=== PATIENT | female | born 1940 | race Caucasian/White ===

== ENCOUNTER 2017-11-28 20:07 | Inpatient (IN) | payer OTHER ==
[~2017-11-28] VITALS: Ht 157.5 cm; Wt 91.7 kg
[~2017-11-28 20:07] MED LIST: ARAVA20 M1 PO; ASMANEX220 MC3; CALTRATE 600 +1 EACH PO; COZAAR25 M1 PO; DAILY MULTIPLE1 EACH PO; FLUTICASONE PRO16 GM NASB; FUROSEMIDE40 M1 PO; LORAZEPAM1 M1 PO; PERCOCET 5-3251 EACH PO; POTASSIUM CHLO20 ME2 PO; PREDNISONE5 M1 PO; SENNA8.6 M3 PO; VITAMIN D31000 UNI2 PO; ZOLOFT50 M1 PO
--- NOTE | 2017-11-28 20:33 | ED AMS/SEIZURE/WEAK/DIZZY ---
History of Present Illness General Chief Complaint: Fall Stated Complaint: BIBA FOR FALL, GENERALIZED WEAKNESS Source: family, EMS Exam Limitations: not alert/orientated, confusion, poor historian Vital Signs & Intake/Output Vital Signs & Intake/Output Vital Signs Date Time Temp Pulse Resp B/P B/P Pulse O2 O2 Flow FiO2 Mean Ox Delivery Rate 11/29 0040 99.6 92 20 96/51 98 Room Air 11/28 2231 100.6 96 24 98/56 97 Nasal 2.5L Cannula 11/287 96 Nasal 2.5L Cannula 11/28 2151 100.1 11/28 2147 100.1 96 24 90/50 96 Nasal 2.5L Cannula 11/28 2124 103.0 11/28 2024 103.0 112 24 153/76 95 Nasal 2.5L Cannula ED Intake and Output 11/29 0000 11/28 1200 Intake Total 0 Output Total 0 Balance 0 Intake, Oral 0 Output, Urine 0 Allergies Coded Allergies: infliximab (From REMICADE) (Severe, LUNG PROBLEM, SOB 11/28/17) methotrexate (Severe, LUNG PROBLEM, SOB 11/28/17) hydroxychloroquine (From PLAQUENIL) (Intermediate, RASH 11/15/17) rituximab (From RITUXAN) (Intermediate, SOB 11/28/17) bacitracin (From NEOSPORIN PLUS PAINRELIEF(SANDRA)) (Mild, RASH 11/15/17) neomycin (From NEOSPORIN PLUS PAINRELIEF(SANDRA)) (Mild, RASH 11/15/17) polymyxin B (From NEOSPORIN PLUS PAINRELIEF(SANDRA)) (Mild, RASH 11/15/17) pramoxine (From NEOSPORIN PLUS PAINRELIEF(SANDRA)) (Mild, RASH 11/15/17) Sulfa (Sulfonamide Antibiotics) (UNKNOWN 11/15/17) azathioprine (UNKNOWN 11/15/17) buspirone (From BUSPAR) (UNKNOWN 11/15/17) clarithromycin (From BIAXIN) (UNKNOWN 11/15/17) latex (UNKNOWN 11/15/17) olmesartan (From BENICAR) (UNKNOWN 11/15/17) tramadol (UNKNOWN 11/15/17) Reconcile Medications Calcium Carbonate/Vitamin D3 (Caltrate 600 + D Tablet) 600 MG-800 TABLET 1 TAB PO QPM SUPPLEMENT (Reported) Cholecalciferol (Vitamin D3) 1,000 UNIT TABLET 1 TAB PO DAILY VITAMIN SUPPORT (Reported) Fluticasone Propionate 50 MCG/ACTUATION SPRAY.SUSP ALLERGIES (Reported) Furosemide 40 MG TABLET 1 TAB PO BID WATER RETENTION (Reported) Leflunomide (Arava) 20 MG TABLET 1 TAB PO DAILY UKNOWN (Reported) Lorazepam 1 MG TABLET 1-2 TAB PO QPM SLEEP (Reported) Losartan Potassium (Cozaar) 25 MG TABLET 1 TAB PO DAILY HEART (Reported) Mometasone Furoate (Asmanex) 220 MCG (30 DOSES) AER.POW.BA ALLERGIES (Reported) Multivitamin (Daily Multiple Vitamin) 1 EACH TABLET 1 TAB PO DAILY VITAMIN SUPPORT (Reported) Oxycodone HCl/Acetaminophen (Percocet 5-325 MG Tablet) 5 MG-325 MG TABLET 0.5 TAB PO DAILY PRN PAIN Potassium Chloride 20 MEQ TAB.ER.PRT 1 TAB PO BID SUPPLEMENT (Reported) Prednisone 5 MG TABLET 1 TAB PO DAILY STEROID (Reported) Sennosides (Senna) 8.6 MG TABLET 1 TAB PO DAILY CONSTIPATION (Reported) Sertraline HCl (Zoloft) 50 MG TABLET 1 TAB PO DAILY MENTAL HEALTH (Reported) Triage Note: 76 YEAR OLD FEMALE BIBA FROM HOME WITH HX FALL 2 WEEKS AGO WITH 2 RIGHT RIB FRACTURES. WITNESSED FALL APPROX 1 HOUR AGO WHEN SHE WENT TO SIT ON "WALKER CHAIR" AND IT ROLLED AWAY FROM HER. WAS ABLE TO LOWER HER TO THE FLOOR. NO HEADSTRIKE. NO LOC. GENERALIZED WEAKNESS X PAST 24 HOURS. Triage Nurses Notes Reviewed? yes HPI: Patient is a 76-year-old female who was brought in by ambulance accompanied by family with report of a slip and fall while attempting to use the bathroom today. Majority of H&P is provided by her family members. Reports she had a fall a few weeks ago where she broke 2 ribs. Daughter reports patient is a 5 glass of wine a day drinker. Over the past week she has not been drinking and has been extra "nasty to the family members". Yesterday family noted she had a slight fever that dissipated throughout the day. Today she was complaining of chills throughout the day. She was taking Tylenol, last dose at 330. She was then using the bathroom and daughter reports she slipped and lowered herself to the ground. She did not hit her head. There is no loss of consciousness. Patient has been having diarrhea which started earlier today and she has been also dry heaving frequently. Patient denies any chest pain or abdominal pain. No headache. (Ba Terrazas PA-C) Past History Travel History Traveled to [place] past 21 day No Medical History Any Pertinent Medical History? see below for history Cardiovascular: hypertension, hyperlipidemia Respiratory: RHEUMATOID LUNG Musculoskeletal: rheumatoid arthritis, osteoporosis Surgical History Surgical History: unobtainable Psychosocial History Who do you live with Spouse Services at Home None What is your primary language Bangladeshi Tobacco Use: Quit >30 days ago Family History Hx Contributory? No (Ba Terrazas PA-C) Review of Systems Review of Systems Constitutional: Reports: chills, fever, malaise, weakness. EENTM: Reports: no symptoms. Respiratory: Reports: see HPI, cough. Cardiovascular: Reports: see HPI. GI: Reports: see HPI, diarrhea, nausea. Genitourinary: Reports: no symptoms. Musculoskeletal: Reports: see HPI. Skin: Reports: no symptoms. Neurological/Psychological: Reports: no symptoms. Hematologic/Endocrine: Reports: no symptoms. Immunologic/Allergic: Reports: no symptoms. All Other Systems: Reviewed and Negative (Ba Terrazas PA-C) Physical Exam Physical Exam General Appearance: well developed/nourished, mild distress Head: atraumatic, normal appearance Eyes: Bilateral: normal appearance, PERRL, EOMI. Ears, Nose, Throat: normal pharynx, hearing grossly normal Neck: normal inspection Respiratory: Scattered wheezing and occasional rhonchi throughout Cardiovascular: regular rate/rhythm, No jvd Gastrointestinal: normal bowel sounds, soft, non-tender, no organomegaly Extremities: normal range of motion Neurologic/Psych: AXOX2, disoriented to time. CN II-XII grossly intact. Following commands, Strength 5/5 and symmetric, sensation grossly intact. No pronator drift. Skin: intact, normal color, warm/dry Core Measures ACS in differential dx? Yes CVA/TIA Diagnosis No Sepsis Present: Yes Sepsis Focused Exam Completed? Yes (Ba Terrazas PA-C) Progress Differential Diagnosis: CVA/stroke, dehydration, drug intoxication, encephalitis , electrolyte imbalance, GI bleed, intracranial Hem., intracranial mass/tumor, pneumonia, sepsis, subarachnoid Hem., UTI/pyelo Plan of Care: Orders Procedure Date/time Status Nothing by Mouth 11/29 B Active Saline Lock 11/29 37 Active Misc Message 11/29 37 Active ED Holding Orders 11/29 37 Active Admit to inpatient 11/29 37 Active Vital Signs 11/29 37 Active Code Status 11/29 37 Active Add-on Test (ER Only) 11/28 2210 Active CULTURE,URINE 11/28 2049 Active TROPONIN LEVEL 11/29 2047 Complete LIPASE 11/29 2047 Complete EKG 11/28 2030 Active BLOOD CULTURE 11/28 2016 Active URINALYSIS 11/28 2016 Complete LACTIC ACID 11/28 2016 Complete COMPREHENSIVE METABOLIC PANEL 11/28 2016 Complete CBC WITHOUT DIFFERENTIAL 11/28 2016 Complete Current Medications Sig/Apple Start time Last Medication Dose Stop Time Status Admin Doxycycline Hyclate 100 MG ONCE ONE 11/29 004 UNVr (Vibramycin) 11/29 0150 Dextrose/Water 100 ML (D5W) Laboratory Tests 11/28/17 2317: Lactic Acid Cancelled 11/28/172136: Urine Color YEL, Urine Clarity CLEAR, Urine pH 6.0, Ur Specific [place] 1.010, Urine Protein 30 H, Urine Ketones NEG, Urine Nitrite NEG, Urine Bilirubin NEG, Urine Urobilinogen 0.2, Ur Leukocyte Esterase TRACE H, Ur Microscopic SEDIMENT EXAMINED, Urine RBC RARE, Urine WBC 5-10 H, Ur Epithelial Cells FEW, Urine Bacteria FEW H, Hyaline Casts 3-5 H, Urine Mucus RARE, Urine Hemoglobin TRACE- INTACT, Urine Glucose NEG 11/28/172047: Anion Gap 12, Estimated GFR 54 L, BUN/Creatinine Ratio 24.0, Glucose 137 H, Lactic Acid 1.4, Calcium 9.8, Total Bilirubin 0.6, AST 37 H, ALT 28, Alkaline Phosphatase 127 H, Troponin I 0.03, Total Protein 6.8, Albumin 3.5, Globulin 3.3, Albumin/Globulin Ratio 1.1, Lipase 54, CBC w Diff MAN DIFF ORDERED, RBC 3.78 L, MCV 89.3, MCH 29.5, MCHC 33.0, RDW 14.2, MPV 7.3 L, Gran % 92.2 H, Lymphocytes % 2.2 L, Monocytes % 5.5, Eosinophils % 0.1, Basophils % 0, Absolute Granulocytes 25.0 H, Segmented Neutrophils 94 H, Band Neutrophils 1, Absolute Lymphocytes 0.6 L, Lymphocytes 2 L, Monocytes 3, Absolute Monocytes 1.5 H, Absolute Eosinophils 0, Absolute Basophils 0, Platelet Estimate VERIFIED BY SMEAR, Normocytic RBCs VERIFIED, Normochromic RBCs VERIFIED, Fld Total RBCs Counted 100 11/28/172030: Troponin I Cancelled, Lipase Cancelled Microbiology 11/28 2136 URINE ROUT: Urine Culture - RECD 11/29 2119 BLOOD: Blood Culture - RECD 11/28 2044 BLOOD: Blood Culture - RECD Initial ED EKG: Sinus Tach at 108 bpm, Nonspecific T wave abnormalities. No significant change from previous EKG. Hand-Off Endorsed To: [place] ZAYAS,Wilfred Arriola Endorsed Time: 2329 Pending: CT, labs Comments: Patient presented with a fever of 103, altered mental status and weakness. She has been given 2 L of IV fluids. 2 IVs were started. Blood work was obtained. She does a white count of 26. Lactate is normal. Her CT scans are pending as her chest x-ray did not show a definite infiltrate. Unsure where the fever source is at this time. Patient was signed out to Dr. Barahona and she will be admitted. (Ba Terrazas PA-C) Diagnostic Imaging: Viewed by Me: CT Scan. Discussed w/RAD: CT Scan. Radiology Impression: PATIENT: TRUPTI CRESPO PRESENT AGE: 76 PATIENT ACCOUNT NO: [id number] : 38 LOCATION: [facility] ORDERING PHYSICIAN: Wilfred Barahona MD SERVICE DATE: 11/28/17 EXAM TYPE: CAT - CT ABD & PELVIS W IV CONTRAST; CT CHEST W IV CONTRAST EXAMINATION: CT CHEST WITH CONTRAST CT ABDOMEN AND PELVIS WITH CONTRAST CLINICAL INFORMATION: Sepsis. Fall. COMPARISON: 11/15/2017 TECHNIQUE: Multidetector volumetric imaging was performed through the chest, abdomen and pelvis following the administration of 95 mL of Optiray 320 intravenous contrast. Sagittal and coronal reformatted images were obtained on the technologist's workstation. Axial MIP volume rendering provided. DLP: 1451 mGy-cm. FINDINGS: CHEST: Lungs: The central airways are patent. Redemonstration of chronic lung disease with diffuse subpleural reticulation and areas of groundglass opacity. Compared to the recent prior CT, there is no significant change. No honeycombing. No dense consolidation. No pneumothorax or pleural effusion. Mediastinum: The heart is normal in size. No pericardial effusion. Coronary artery calcifications noted. No mediastinal lymphadenopathy. The thyroid gland appears unremarkable. Chest Wall/Axilla: No lymphadenopathy. No chest wall mass. ABDOMEN/PELVIS: Liver, Gallbladder, Biliary Tree: The liver is normal in size, shape, and attenuation. No focal hepatic lesion or biliary ductal dilatation is present. Multiple gallstones are seen layering within the gallbladder lumen. No gallbladder wall thickening or pericholecystic fluid. Pancreas: Mild fatty atrophy in the region of the pancreatic head. No focal parenchymal abnormality. Spleen: Unremarkable. Adrenal Glands: Unremarkable. Kidneys and Ureters: The kidneys are normal in size, shape, and attenuation. No hydronephrosis, hydroureter or calculi seen. No perinephric stranding. There is an indeterminate left midpole renal lesion which measures 1.9 cm. This measures higher than simple fluid attenuation. There is an additional left lower pole posterior 1.2 cm lesion which also measures higher than simple fluid attenuation. Bladder: Unremarkable. Gastrointestinal Tract: The stomach is compressed. Somewhat abnormal appearance in the region of the gastric antrum could represent a small diverticulum versus decompressed appearance with folds. This is seen on series 2 image 61. The small bowel is normal in caliber. No obstruction. Likely normal appendix. No colonic wall thickening or inflammatory change. No free air or free fluid. Abdominal Wall: No hernia is demonstrated. Lymphovascular Structures: Lymph nodes: Normal. Vascular : Normal caliber aorta with mild atherosclerotic calcifications. Pelvic Viscera: The uterus and adnexa are unremarkable. OSSEOUS STRUCTURES: No suspicious sclerotic or lytic bone lesions are identified. Multilevel degenerative changes are seen throughout the spine. Multilevel vacuum disc phenomenon. Chronic healed sternal fracture. The fracture of the right anterior sixth and seventh ribs is again noted. In addition, not included on the [id number] of the prior chest CT, there are healing fractures involving the anterior right eighth and ninth ribs as well. IMPRESSION: 1. Healing fractures of the right anterior sixth through ninth ribs. 2. Chronic interstitial lung disease, similar to the recent prior study. No acute pulmonary finding. 3. Indeterminant left renal lesions. Further evaluation could initially be performed with renal ultrasound. ([place] ZAYAS,Wilfred Arriola) Departure Departure Disposition: STILL A PATIENT Condition: Stable Referrals: Peter Rodriguez MD (PCP/Family) Departure Forms: Customer Survey General Discharge Information (Mk PIKE,Ba) Departure Clinical Impression Primary Impression: Sepsis Secondary Impressions: Dehydration, Hyponatremia, Pneumonia, Rib fractures Admission Note Spoke With: Javier Ramirez MD Documentation of Exam: Documentation of any treatments & extenuating circumstances including Concerns Regarding Discharge (functional status, medication knowledge or non-compliance, living conditions, etc.) that warrant an admission rather than observation: pt meets criteria for sepsis.... likely pulmonar source, given her chronic lung disease, benign u/a, and ct scans.... ctx and doxy given (pt with sensitivity to macrolides).... pt responded to iv fluids... stable for gen med. PA/SPINNING FRAME CHANGER Co-Sign Statement Statement: ED Attending supervision documentation- [x] I saw and evaluated the patient. I have also reviewed all the pertinent lab results and diagnostic results. I agree with the findings and the plan of care as documented in the PA's/SPINNING FRAME CHANGER's documentation. 11/28/17, 21:01... pt with fever, tachycardia, presently comfortable in ED... await labs, will consider admission given pt meets criteria for sepsis. [] I have reviewed the ED Record and agree with the PA's/SPINNING FRAME CHANGER's documentation. [] Additions or exceptions (if any) to the PAs/SPINNING FRAME CHANGER's note and plan are summarized below: [] ([place] ZAYAS,Wilfred Arriola) Critical Care Note Critical Care Note Critical Care Time: 30-74 min ([place] ZAYAS,Wilfred Arriola)
[2017-11-28 20:59] LABS: ABSOLUTE BASOPHIL COUNT 0 /CUMM (0.0-0.2); ABSOLUTE EOSINOPHIL COUNT 0 /CUMM (0.0-0.7); ABSOLUTE LYMPH COUNT 0.6 /CUMM (1.2-3.4); ABSOLUTE MONOCYTE COUNT 1.5 /CUMM (0.10-0.60); BASOPHIL % 0 % (0.0-2.0); EOSINOPHIL % 0.1 % (0-5); HEMATOCRIT 33.7 % (37-47); MEAN CORPUSCULAR HGB 29.5 PG (27.0-31.0); MEAN CORPUSCULAR VOLUME 89.3 FL (81.0-99.0); MEAN PLATELET VOLUME 7.3 FL (7.4-10.4); PLATELET COUNT 548 /CUMM (130-400); RBC DISTRIBUTION WIDTH 14.2 % (11.5-14.5); RED BLOOD CELL CT 3.78 /CUMM (4.20-5.40); WHITE BLOOD CELL COUNT 27.1 /CUMM (4.8-10.8)
[2017-11-28 21:01] LABS: GRANULOCYTE % 92.2 % (42.2-75.2)
--- NOTE | 2017-11-28 21:08 | RADIOLOGY REPORT ---
EXAMINATION: XR CHEST CLINICAL INFORMATION: Substances COMPARISON: 2012 TECHNIQUE: 2 views of the chest were obtained. FINDINGS: Diffuse interstitial lung markings chronic unchanged prominent interstitial lung disease, difficult to exclude superimposed infiltrates. No dense consolidation however. Both terrance are prominent unchanged. No large effusion or pneumothorax. IMPRESSION: Diffuse increased interstitial lung markings chronic probably underlying interstitial lung disease. Difficult to exclude underlying mild infiltrate. Clinical correlation recommended.
--- NOTE | 2017-11-28 23:22 | CT SCAN REPORT ---
EXAMINATION: CT HEAD WITHOUT CONTRAST CLINICAL INFORMATION: Fall. Altered mental status. COMPARISON: MRI from 06/23/2017 TECHNIQUE: Contiguous axial imaging was performed from the skull base to vertex without intravenous contrast. DLP: 617 mGy-cm. FINDINGS: There is no evidence of acute intracranial hemorrhage or territorial infarction. No abnormal mass effect or midline shift is seen. Jose to white matter differentiation is well preserved. No extra-axial fluid collections are identified. No hydrocephalus. Proportional prominence of the ventricles and sulcal spaces is consistent with mild volume loss. Patchy periventricular and deep white matter hypoattenuation is consistent with mild small vessel ischemic changes. The osseous structures and soft tissues are normal. The mastoid air cells and visualized portions of the paranasal sinuses are well aerated. IMPRESSION: No acute intracranial pathology. Mild volume loss with small vessel ischemic change.
--- NOTE | 2017-11-28 23:36 | CT SCAN REPORT ---
EXAMINATION: CT CHEST WITH CONTRAST CT ABDOMEN AND PELVIS WITH CONTRAST CLINICAL INFORMATION: Sepsis. Fall. COMPARISON: 11/15/2017 TECHNIQUE: Multidetector volumetric imaging was performed through the chest, abdomen and pelvis following the administration of 95 mL of Optiray 320 intravenous contrast. Sagittal and coronal reformatted images were obtained on the technologist's workstation. Axial MIP volume rendering provided. DLP: 1451 mGy-cm. FINDINGS: CHEST: Lungs: The central airways are patent. Redemonstration of chronic lung disease with diffuse subpleural reticulation and areas of groundglass opacity. Compared to the recent prior CT, there is no significant change. No honeycombing. No dense consolidation. No pneumothorax or pleural effusion. Mediastinum: The heart is normal in size. No pericardial effusion. Coronary artery calcifications noted. No mediastinal lymphadenopathy. The thyroid gland appears unremarkable. Chest Wall/Axilla: No lymphadenopathy. No chest wall mass. ABDOMEN/PELVIS: Liver, Gallbladder, Biliary Tree: The liver is normal in size, shape, and attenuation. No focal hepatic lesion or biliary ductal dilatation is present. Multiple gallstones are seen layering within the gallbladder lumen. No gallbladder wall thickening or pericholecystic fluid. Pancreas: Mild fatty atrophy in the region of the pancreatic head. No focal parenchymal abnormality. Spleen: Unremarkable. Adrenal Glands: Unremarkable. Kidneys and Ureters: The kidneys are normal in size, shape, and attenuation. No hydronephrosis, hydroureter or calculi seen. No perinephric stranding. There is an indeterminate left midpole renal lesion which measures 1.9 cm. This measures higher than simple fluid attenuation. There is an additional left lower pole posterior 1.2 cm lesion which also measures higher than simple fluid attenuation. Bladder: Unremarkable. Gastrointestinal Tract: The stomach is compressed. Somewhat abnormal appearance in the region of the gastric antrum could represent a small diverticulum versus decompressed appearance with folds. This is seen on series 2 image 61. The small bowel is normal in caliber. No obstruction. Likely normal appendix. No colonic wall thickening or inflammatory change. No free air or free fluid. Abdominal Wall: No hernia is demonstrated. Lymphovascular Structures: Lymph nodes: Normal. Vascular: Normal caliber aorta with mild atherosclerotic calcifications. Pelvic Viscera: The uterus and adnexa are unremarkable. OSSEOUS STRUCTURES: No suspicious sclerotic or lytic bone lesions are identified. Multilevel degenerative changes are seen throughout the spine. Multilevel vacuum disc phenomenon. Chronic healed sternal fracture. The fracture of the right anterior sixth and seventh ribs is again noted. In addition, not included on the [id number] of the prior chest CT, there are healing fractures involving the anterior right eighth and ninth ribs as well. IMPRESSION: 1. Healing fractures of the right anterior sixth through ninth ribs. 2. Chronic interstitial lung disease, similar to the recent prior study. No acute pulmonary finding. 3. Indeterminant left renal lesions. Further evaluation could initially be performed with renal ultrasound.
[2017-11-29] VITALS (7 sets, daily range): BP systolic 100–132; BP diastolic 60–80
--- NOTE | 2017-11-29 00:56 | History & Physical ---
YanRosi 11/29/17 0051: General Information and HPI MD Statement: I have seen and personally examined TRUPTI CRESPO and documented this H&P. The patient is a 76 year old F who presented with a patient stated chief complaint of [fall/weakness]. Source of Information: patient, old records Exam Limitations: unable to give history History of Present Illness: Ms. 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 Prior ER, patient was in her usual state of healthy u until 3 wks ago that she developed intermittent diarrhea, self-resolving, and attributed to intermittent bowel regiment use. She had a mechanical fall not assoc w/ LOC/head strike, but with multiple bruises on RLE and resulted in nondisplaced R anterior 6ht and 7th rib fracture, presented to the ER on 11.15, and discharged home. She has been feeling weak ever since and was not as active as before. She endorserd decreased appetite, but denied N/V/ab pain/tenesmus. She reported pain in her upper back that was likely 2/2 thoracic radiculopathy. During our clinical interaction, patient's daughter at bedside provided the history that patient was found to have fallen out of walker chair and fell on the floor, witness by patient's , without LOC/head injury, but was then found to have AMS that lasted for a few hours, and fever with rigors when she was brought to ER, however subsequently resolved when we initiated the admission process that patient became AO x 3 but could not really remember what had happened today regarding her fall. Patient also denied any neck rigidity/urinary symptoms/sore throat/recent use of ABX/chemo. -Smoking: denies -Alcohol: 5 glasses of wine/day -Rec Drugs: denies Allergies/Medications Allergies: Coded Allergies: infliximab (From REMICADE) (Severe, LUNG PROBLEM, SOB 11/28/17) methotrexate (Severe, LUNG PROBLEM, SOB 11/28/17) hydroxychloroquine (From PLAQUENIL) (Intermediate, RASH 11/15/17) rituximab (From RITUXAN) (Intermediate, SOB 11/28/17) bacitracin (From NEOSPORIN PLUS PAINRELIEF(SANDRA)) (Mild, RASH 11/15/17) neomycin (From NEOSPORIN PLUS PAINRELIEF(SANDRA)) (Mild, RASH 11/15/17) polymyxin B (From NEOSPORIN PLUS PAINRELIEF(SANDRA)) (Mild, RASH 11/15/17) pramoxine (From NEOSPORIN PLUS PAINRELIEF(SANDRA)) (Mild, RASH 11/15/17) Sulfa (Sulfonamide Antibiotics) (UNKNOWN 11/15/17) azathioprine (UNKNOWN 11/15/17) buspirone (From BUSPAR) (UNKNOWN 11/15/17) clarithromycin (From BIAXIN) (UNKNOWN 11/15/17) latex (UNKNOWN 11/15/17) olmesartan (From BENICAR) (UNKNOWN 11/15/17) tramadol (UNKNOWN 11/15/17) Past History Travel History Traveled to [place] past 21 day No Medical History Cardiovascular: hypertension, hyperlipidemia Respiratory: RHEUMATOID LUNG Musculoskeletal: rheumatoid arthritis, osteoporosis Surgical History Surgical History: unobtainable Past Family/Social History Psychosocial History Services at Home: None ETOH Use: heavy use Illicit Drug Use: denies illicit drug use Functional Ability ADLs Independent: dressing, eating, toileting, bathing. Ambulation: independent IADLs Independent: shopping, housework, finances, food prep, telephone, transportation , medication admin. Review of Systems Review of Systems Constitutional: Reports: see HPI. Exam & Diagnostic Data Last 24 Hrs of Vital Signs/I&O Vital Signs Date Time Temp Pulse Resp B/P B/P Pulse O2 O2 Flow FiO2 Mean Ox Delivery Rate 11/29 0308 98.1 91 20 118/66 95 Nasal 2.0L Cannula 11/29 0300 Nasal 2.0L Cannula 11/29 0230 98.9 88 20 98/70 97 Room Air 11/29 0040 99.6 92 20 96/51 98 Room Air 11/28 2230 100.6 96 24 98/56 97 Nasal 2.5L Cannula 11/28 2216 96 Nasal 2.5L Cannula 11/28 2150 100.1 11/28 2146 100.1 96 24 90/50 96 Nasal 2.5L Cannula 11/28 2124 103.0 11/28 2024 103.0 112 24 153/76 95 Nasal 2.5L Cannula Intake & Output 11/29 0800 11/29 0000 11/28 1600 Intake Total 0 Output Total 0 Balance 0 Intake, Oral 0 Output, Urine 0 Patient 90.718 kg Weight Weight Bed scale Measurement Method Physical Exam General Appearance Alert, Oriented X3, Cooperative, No Acute Distress Skin No Breakdown, RLE multiple bruises from previous fall Skin Temp/Moisture Exam: Warm/Dry Sepsis Skin Exam (color): Normal for Ethnicity HEENT Atraumatic, PERRLA, EOMI Neck Supple, No JVD Lymphatic Axillary nl, Cervical nl Cardiovascular Regular Rate, Normal S1, Normal S2 Lungs Normal Air Movement, bilateral crackles at lung bases Abdomen Normal Bowel Sounds, Soft, No Tenderness, No Hepatospenomegaly Neurological Normal Speech, Strength at 5/5 X4 Ext, Normal Tone, Sensation Intact Extremities No Edema, Normal Pulses, No Tenderness/Swelling Last 24 Hrs of Labs/Boy: Laboratory Tests 11/28/172316: Lactic Acid Cancelled 11/28/172136: Urine Color YEL, Urine Clarity CLEAR, Urine pH 6.0, Ur Specific [place] 1.010, Urine Protein 30 H, Urine Ketones NEG, Urine Nitrite NEG, Urine Bilirubin NEG, Urine Urobilinogen 0.2, Ur Leukocyte Esterase TRACE H, Ur Microscopic SEDIMENT EXAMINED, Urine RBC RARE, Urine WBC 5-10 H, Ur Epithelial Cells FEW, Urine Bacteria FEW H, Hyaline Casts 3-5 H, Urine Mucus RARE, Urine Hemoglobin TRACE- INTACT, Urine Glucose NEG 11/28/172047: Anion Gap 12, Estimated GFR 54 L, BUN/Creatinine Ratio 24.0, Glucose 137 H, Lactic Acid 1.4, Calcium 9.8, Total Bilirubin 0.6, AST 37 H, ALT 28, Alkaline Phosphatase 127 H, Troponin I 0.03, Total Protein 6.8, Albumin 3.5, Globulin 3.3, Albumin/Globulin Ratio 1.1, Lipase 54, CBC w Diff MAN DIFF ORDERED, RBC 3.78 L, MCV 89.3, MCH 29.5, MCHC 33.0, RDW 14.2, MPV 7.3 L, Gran % 92.2 H, Lymphocytes % 2.2 L, Monocytes % 5.5, Eosinophils % 0.1, Basophils % 0, Absolute Granulocytes 25.0 H, Segmented Neutrophils 94 H, Band Neutrophils 1, Absolute Lymphocytes 0.6 L, Lymphocytes 2 L, Monocytes 3, Absolute Monocytes 1.5 H, Absolute Eosinophils 0, Absolute Basophils 0, Platelet Estimate VERIFIED BY SMEAR, Normocytic RBCs VERIFIED, Normochromic RBCs VERIFIED, Fld Total RBCs Counted 100 11/28/172030: Troponin I Cancelled, Lipase Cancelled Microbiology 11/29 0248 STOOL: Clostridium difficile Toxin A & B - ORD 11/28 2136 URINE ROUT: Legionella Antigen - COMP 11/28 2136 URINE ROUT: Streptococcus pneumoniae Antigen (M - COMP 11/28 2136 URINE ROUT: Urine Culture - RECD 11/29 2119 BLOOD: Blood Culture - RECD 11/28 2044 BLOOD: Blood Culture - RECD Assessment/Plan Assessment: On admission, Vitals: Tmax 103, Tachycardia 112 -> 96, R 24, BP 153/76->98/56, 97% on 2.5LNC -CBC: Leukocytosis 27.1, H/H 11.1/33.7, PLT 548 -BMP: Na 132, Cl 93, BUN 24, Cr 1.0, -UA/Microbiology: -EKG: Sinus Tach at 108 bpm, Nonspecific T wave abnormalities. Problem list/Assessment/Hospital Course: #Fever of unknown origin #Leukocytosis w/ elevated granulocyte % #ILD, stable #RA, stable #Hx of renal lesions #Hx of rib fractures, healing #Hx of diastolic CHF #Hyponatremia #slightly elevated AST/AlkPhos This is a 76yo F admitted with fever of unknown origin, however presented with a CBC sign of infection including leukocytosis/granulocytosis/high fever/AMS, however had no findings on serial chest imagings/ab imaging/UA/positive PE findings or recent sick contact. DDx may include PNA, UTI, C.diff, atelectasis. Patient could also be immunosuppressed due to long-term treatment of RA/ Rheumatoid lung. Further evaluation including consultation would be warranted. - Admit to general medicine, vitals per protocol - Supplemental O2 PRN - Stress dose of steroids as patient had been on chronic prednisone - IVF w/ NS, recheck BE daily for hyponatremia - Hold home meds of prednisone, leflunamide. - Check C.Diff toxin, however patient was not on any ABX in the past month. - Check gram stain, LRC, urine antigens, etc. - Panculture - Renal U/S to rule out abscess. - Continue Ceftriaxone + Doxy for now given patient's allergy to macrolides - Repeat EKG/Trop in the AM - Incentive spirometry to enhance lung expansion - Pending Pulmonary consult by Dr. Estrella in the AM - Pending ID consult for further evaluation of fever. - CIWA PRN as patient had been drinking 4-5 glasses of wine daily. - Continued all other home meds DVT prophylaxis Pharm PPX + ALPS Heart Healthy Diet DNR/DNI As Ranked By This Provider Problem List: 1. Hyponatremia 2. Dehydration 3. Osteoporosis 4. Fever of unknown origin Core Measures/Misc (03/20) Acute Coronary Syndrome ACS Diagnosis: No Congestive Heart Failure Congestive Heart Failure Diagnosis No Cerebrovascular Accident CVA/TIA Diagnosis: No VTE (View Protocol) VTE Risk Factors Age>40 No Mechanical VTE Prophylaxis d/t N/A MechProphylax Ordered No VTE Pharm Prophylaxis d/t NA PharmProphylax ordered Sepsis (View protocol) Sepsis Present: No If YES complete Sepsis Event Note If YES complete Sepsis Event Note Lu Tsai 11/29/17 0239: General Information and HPI Allergies/Medications Home Med list Cholecalciferol (Vitamin D3) 1,000 UNIT TABLET 1 TAB PO DAILY VITAMIN SUPPORT (Reported) Fluticasone Propionate 50 MCG/ACTUATION SPRAY.SUSP ALLERGIES (Reported) Furosemide 40 MG TABLET 1 TAB PO BID WATER RETENTION (Reported) Leflunomide (Arava) 20 MG TABLET 1 TAB PO DAILY UKNOWN (Reported) Lorazepam 1 MG TABLET 1-2 TAB PO QPM SLEEP (Reported) Losartan Potassium 50 MG TABLET 1 TAB PO DAILY BP (Reported) Meloxicam (Mobic) 7.5 MG TABLET 1 TAB PO DAILY PAIN (Reported) Metolazone 2.5 MG TABLET 1 TAB PO Q48 DIURETIC (Reported) Mometasone Furoate (Asmanex) 220 MCG (30 DOSES) AER.POW.BA ALLERGIES (Reported) Multivitamin (Daily Multiple Vitamin) 1 EACH TABLET 1 TAB PO DAILY VITAMIN SUPPORT (Reported) Oxycodone HCl/Acetaminophen (Percocet 5-325 MG Tablet) 5 MG-325 MG TABLET 0.5 TAB PO DAILY PRN PAIN Potassium Chloride 20 MEQ TAB.ER.PRT 1 TAB PO BID SUPPLEMENT (Reported) Prednisone 5 MG TABLET 1 TAB PO DAILY STEROID (Reported) Sennosides (Senna) 8.6 MG TABLET 1 TAB PO DAILY CONSTIPATION (Reported) Core Measures/Misc (03/20) Sepsis (View protocol) If YES complete Sepsis Event Note If YES complete Sepsis Event Note Resident Review Statement Resident Statement: examined this patient, discussed with sports management internship, agreed with sports management internship Other Findings: Ms Lee is a76 year old woman w/ a PMHx of hypertension, hyperlipidemia, rheumatoid arthritis, osteoporosis, Severe interstitial lung disease with a history of UIP related to rheumatoid arthritis confirmed by an open lung biopsy in 2002(uses 2L oxygen), Ulcerative colitis who was brought in by the family with a chief concern of fall while getting out of the bathroom on the day of admission. She was known to be in her usual state of health until three weeks ago, when she developed diarrhea which resolved on itself. Approximately two weeks ago 11/15/17, she had a mechanical fall not associated w/ LOC or prodromal symptoms that resulted in nondisplaced right anterior sixth and seventh rib fractures and multiple bruises on the RLE that was evaluated at ER. Reported feeling weak after the fall, and has not been active. She reported decreased apetite, but no nausea, vomiting or abdominal pain. She reported intermittent diarrheal episodes, but did not have any abdominal pain or tenesmus. Reported pain in her upper back that was largely attributed to her thoracic radiculopathy. No chest pain, no worsening dyspnea, or palpitations. On the day of presentation, she was found to have fallen out of walker chair and fell on the floor. Her was present at the time of episode. No loss of consciousness or head injury, but was found to have altered mentation that lasted for a few hours. She was also found to have fever associated w/ rigors when she was brought to the ER. No neck rigidity, no dysurea, no vaginal discharge. No sore throat. No recent use of abx, or new chemo tx drugs. At the time of admission-temperature 103--> 99.6, pulse rate 112, blood pressure 153/76, pulse ox 95% on 2.5 L. General Exam: AAOx3, No acute distress, but appeard to have dyspnea Skin: No rashes, no breakdown, echymotic areas on the RLE secondary to fall, no joint swellings or erythema, no rash;HEENT: PERRLA, EOMI; Neck: Supple, No JVD; No cervical lymphadenopathy;CVS: Reg Rate, Normal S1,S2, No MGR;Resp:dec air entry, ovi rales;Abdomen: Soft, No tenderness, Normal Bowel Sounds;Neuro: Normal Speech , Strength 5/5 b/l x 4 extremities, Sensation intact, CN III-XII NL, Reflexes 2+ ;Extremities: No cyanosis, no pedal edema EKG revealed Sinus tach at 108 bpm, Nonspecific T wave abnormalities. No significant change from previous EKG. Pertinent lab findings- WBC 27.1 (granulocytosis 92.2), hemoglobin 11.1, platelets 548 (likely reactive) Na 132, K 3.9, Cl 92, HCO3 27, AG 12 Renal function-BUN 24, Cr 1.0. Liver chemistries-AST 37, ALT 28, alkaline phosphatase 127. Lactic acid 1.4 Urinalysis revealed urine protein 30, leukocyte esterase trace, nitrite negative , WBC 5-10, hyaline casts 3-5. CT scan head revealed no acute intracranial pathology. Mild volume loss with small vessel ischemic change. CT chest and abdomen revealed 1. Healing fractures of the right anterior sixth through ninth ribs. 2. Chronic interstitial lung disease, similar to the recent prior study. No acute pulmonary finding. 3. Indeterminant left renal lesions. Further evaluation could initially be performed with renal ultrasound. Problem list: 1. Leucocytosis 2. ILD 3. RA 4. h/o renal lesions 5. h/o rib fractures Etilogy in her case is unclear that may have caused an acute change in her clinical state that resulted in a fall, and also had fever. Upon reviewing the labs, she clearly appears to have some infection w/ granulocytosis despite being on prednisone+DMARD, and is severly dehydrated. The source of infection is unclear at this time, and having aseptic inflammation is likely in her case such as Collagen Vascular disease leading to pyrexia, myocardial infarction, myositis. Infectious sources considered at this time are pneumonia, UTI, C diff diarrhea are in the differentials. Plan: - Admit the pt to inpatient service, general medicine preferably at this time given stable BP. - Since the pt is on prednisone, would give her a stress dose of steroids especially solucortef. - IVF w/ NS. Rechek Na in the am given slighly low serum sodium at the time of presentation. - Hold prednisone, Leflunamide at this time - Check C diff toxin , no abx at this time. If the primary team feels strongly to check for C diff PCR and treat pending results, would defer the decision to the ID child development consultant. - Check gram stain, LRC, urine legionella, strep ag. - Check BC x 2, UC. - Check renal ultrasound, to better assess the lesions if they are abscesses. Given h/o being on leflunamide for a long time, there is a possibility of abscess formation, if symptoms dont resolve. - Continue Ceftriaxone + Doxy for now, given allergy to macrolides. - Acetaminophen for fever. - Supplemental O2 prn. Titrate as needed. - Check a follow up Trop in the am. - Incentive spirometry, to avoid any fever from atelectesis. Housekeeping checklist: 1. DVT PPx- Heparin sc 2. GI PPx- Protonix prn 3. Code status- DNR/DNI 4. Diet - heart healthy diet. 5. Med rec-completed, but have the family bring the med list again since the doses of Metolazone/Furosemide is unclear. 6. Consults- Pulm , ID Dinora ZAYAS who evaluated her in the past. James ZAYAS, [facility] 11/29/17 0451: Core Measures/Misc (03/20) Sepsis (View protocol) If YES complete Sepsis Event Note If YES complete Sepsis Event Note Attending MD Review Statement Attending Statement Attending MD Statement: examined this patient, discuss w/resident/PA/TRIM MACHINE OPERATOR, agreed w/resident/PA/TRIM MACHINE OPERATOR, discussed with family, reviewed images, amended to note Attending Assessment/Plan: 76 yo F with h/o chronic hypoxic respiratory failure on 2L O2, severe ILD with usual interstitial pneumonia secondary to rheumatoid arthritis confirmed by open lung biopsy (2002), RA on leflunomide and chronic prednisone, reflux disease, depression, osteoporosis, ulcerative colitis, is brought in for evaluation after a mechanical fall at home. Patient was seen in the ER 2 weeks prior for a fall resulting in right sided rib fractures. She was discharged home on Percocet. Patient continues to c/o severe right leg pain (impact of the fall with e/o thigh hematoma), upper back pain and right rib pain. Today, she was unable to get off the toilet, needed assistance, walked with a walker but was not able to maneuvre it and slid down to the ground. When family helped her, they noticed that her legs were weight. She was also confused and acting differently as per family. She spiked a fever of 103 in the ER. She then elaborates on a myriad of symptoms. She reports being constipated 2 weeks ago, took Senna and dulcolax after which she had bouts of diarrhea. Over past 2 weeks, she has had intermittent diarrhea, most recently one day prior she had 3 nonbloody diarrheal movements. No recent antibiotic use or consumption of uncooked food. She reports poor appetite, no N/V/ abdominal pain. She has baseline chronic dyspnea on exertion and intermittent nonproductive cough that has not changed. C/o chills, subjective fevers. Denies chest pain, palpitations or lightheadedness. Apparently patient drinks about 3-5 glasses of wine everyday for past 10 yrs, but she has not been drinking for the past 2 weeks. No h/o DT's. Vitals: Tmax 103 -->98.9, HR 80-110's, BP 153/76 --> 98/56 --> 118/66, sats 97% on 2L. Exam: At the time of our evaluation, patient was oriented x 3, mild distress, Chest basilar coarse crackles+ R>L, reduced air entry, Heart S1S2 regular. LE ecchymotic areas noted to right leg, no cellulitis or SSTI. Labs: WBC 27.1, H/H 11.1/33.7, Plt 548, band 1, Na 132, BUN 24, creat 1.0, glucose 137, lactic acid 1.4, AST 37, trop neg. UA clear, protein+, trace LE, WBC 5-10. CXR: diffuse increased interstitial lung markings chronic from ILD. Difficult to exclude underlying infiltrate. CT CAP: healing fracture of right 6th to 9th ribs, chronic interstitial lung disease, no new changes. Left midpole renal lesion and lower pole posterior lesion higher than simple fluid attenuation. Head CT: no acute pathology, small vessel ischemic change. EKG: sinus tachycardia, Qtc 392. Assessment and plan: 1. Acute delirium in the setting of fever 2. Fever of unknown origin - possible source being superimposed bacterial infection over underlying ILD. No clear e/o ILD exacerbation. Cdiff colitis needs to be ruled out. CT not suggestive of infectious or ischemic colitis. UA negative for UTI. No obvious SSTI/ cellulitis. CT shows multiple gallstones but no e/o wall thickening or fluid. LFTs are benign except for mild elevation in AST. No signs of meningitis. Lastly given recent rib fractures, atelectasis is likely and this could attribute to fever as well. 3. SIRS leukocytosis, tachycardia, fever 4. Transient hypotension - resolved 5. Recurrent fall, deconditioning 6. History of RA and ILD on chronic prednisone 7. Alcohol use 8. Left renal lesions - Admit to General medicine - Panculture - Incentive spirometry - Urine legionella and strep Ag - Check flu swab - Panculture - Check stool cultures, Cdiff - Stress dose steroids to help with hypotension - Resume PO prednisone in AM - Patient received IV ceftriaxone and doxy (allergy to clarithromycin) for possible pneumonia. We will continue both antibiotics. - Obtain ID consult - Pulm consult (Dr. Flores) - Gentle IV hydration, check AM cortisol - Hold leflunomide - Renal ultrasound in AM - CIWA protocol, no ativan unless withdrawing - PT eval DVT ppx Hep SC. DNR/I. CMR needs to be confirmed in AM.
[2017-11-29] MEDS ORDERED: LOSARTAN POTASS50 M1 PO (02:52)
[2017-11-29] MEDS ORDERED: MOBIC7.5 M1 PO (02:55)
[2017-11-29] MEDS ORDERED: METOLAZONE2.5 M1 PO (03:06)
--- NOTE | 2017-11-29 04:15 | Admission Certification ---
Admission Certification Certification Statement - As attending physician, I certify that at the time of - admission, based on clinical presentation, severity of - symptoms, need for further diagnostic testing and - therapeutic interventions, and risk of adverse outcomes - without in-hospital treatment, in my clinical assessment, - this patient requires an acute hospital stay for a minimum - of two nights or longer. I have also considered psychsocial - factors such as support system, advanced age, financial - issues, cognitive issues, and failed out-patient treatments, - past re-admission history, safety of patient, and lack of - compliance as applicable. Specific rationale supporting this admission is: Fever of unknown origin in this immunocompromised patient with severe ILD and rheumatoid arthritis.
[2017-11-29 08:17] LABS: ABSOLUTE BASOPHIL COUNT 0 /CUMM (0.0-0.2); ABSOLUTE EOSINOPHIL COUNT 0.1 /CUMM (0.0-0.7); ABSOLUTE GRANULOCYTE CT 28.5 /CUMM (1.4-6.5); ABSOLUTE LYMPH COUNT 1.3 /CUMM (1.2-3.4); ABSOLUTE MONOCYTE COUNT 2.6 /CUMM (0.10-0.60); BASOPHIL % 0.1 % (0.0-2.0); EOSINOPHIL % 0.3 % (0-5); GRANULOCYTE % 87.7 % (42.2-75.2); MEAN CORPUSCULAR HGB 30.1 PG (27.0-31.0); MEAN CORPUSCULAR HGB CONC 33.7 G/DL (33.0-37.0); MEAN CORPUSCULAR VOLUME 89.4 FL (81.0-99.0); MEAN PLATELET VOLUME 7.6 FL (7.4-10.4); PLATELET COUNT 466 /CUMM (130-400); RBC DISTRIBUTION WIDTH 14.4 % (11.5-14.5); RED BLOOD CELL CT 3.19 /CUMM (4.20-5.40)
[2017-11-29 08:52] LABS: HEMATOCRIT 28.5 % (37-47)
[2017-11-29 09:04] LABS: WHITE BLOOD CELL COUNT 32.5 /CUMM (4.8-10.8)
--- NOTE | 2017-11-29 09:06 | PN- Housestaff ---
Subjective Follow-up For: #Fever of unknown origin #Leukocytosis w/ elevated granulocyte % #ILD, stable #RA, stable #Hx of renal lesions #Hx of rib fractures, healing #Hx of diastolic CHF #Hyponatremia #elevated AST/AlkPhos Subjective: Patient reports Review of Systems Constitutional: Reports: see HPI. Objective Last 24 Hrs of Vital Signs/I&O Vital Signs Date Time Temp Pulse Resp B/P B/P Pulse O2 O2 Flow FiO2 Mean Ox Delivery Rate 11/29 1548 Nasal 2.0L Cannula 11/29 1420 Nasal 2.0L Cannula 11/29 1420 96 Nasal 2.0L Cannula 11/29 1354 97.7 86 20 100/70 96 Nasal 2.0L Cannula 11/29 1044 98.1 77 20 116/60 100 Nasal 2.0L Cannula 11/29 1000 98.1 77 20 116/60 11/29 0800 98.7 92 20 116/60 11/29 0800 96 Nasal 2.0L Cannula 11/29 0620 98.7 92 20 116/60 96 Nasal Cannula 11/29 0308 98.1 91 20 118/66 95 Nasal 2.0L Cannula 11/29 0300 Nasal 2.0L Cannula 11/29 0230 98.9 88 20 98/70 97 Room Air 11/29 0040 99.6 92 20 96/51 98 Room Air 11/28 2231 100.6 96 24 98/56 97 Nasal 2.5L Cannula 11/28 2217 96 Nasal 2.5L Cannula 11/28 2151 100.1 11/28 2147 100.1 96 24 90/50 96 Nasal 2.5L Cannula 11/28 2125 103.0 11/285 103.0 112 24 153/76 95 Nasal 2.5L Cannula Intake & Output 11/29 1600 11/29 0800 11/29 0000 Intake Total 1400 300 0 Output Total 600 0 Balance 800 300 0 Intake, IV 800 300 Intake, Oral 600 0 Number 3 3 Bowel Movements Output, Urine 600 0 Patient 200 lb Weight Weight Bed scale Measurement Method Physical Exam General Appearance: Alert, Oriented X3, Cooperative, No Acute Distress Cardiovascular: Regular Rate, Normal S1, Normal S2 Lungs: BL fine crackles Abdomen: Normal Bowel Sounds, Soft, No Tenderness Extremities: No Edema Current Medications: Current Medications Sig/Apple Start time Last Medication Dose Route Stop Time Status Admin Acetaminophen 650 MG Q8P PRN 11/29 0315 AC 11/29 PO 1537 Acetaminophen 0 .STK-MED ONE 11/281 DC IV Acetaminophen 650 MG ONCE ONE 11/28 2044 DC 11/28 PO 11/28 Albuterol Sulfate 3 ML BID 11/29 2100 AC 11/29 INH 1417 Ceftriaxone Sodium 1,000 MG 2300 11/29 2300 AC IV Ceftriaxone Sodium 0 .STK-MED ONE 11/28 2245 DC .ROUTE Ceftriaxone Sodium 1,000 MG ONCE ONE 11/28 2230 DC 11/28 IV 11/28 223 2331 Doxycycline Hyclate 100 MG 1100,2300 11/29 1100 AC 11/29 Dextrose/Water 100 ML IV 1143 Doxycycline Hyclate 100 MG ONCE ONE 11/29 0145 DC 11/29 Dextrose/Water 100 ML IV 11/29 0250 0151 Heparin Sodium 5,000 UNIT Q8 11/29 0600 AC 11/29 (Porcine) SC 1349 Hydrocortisone 100 MG ONE ONE 11/29 0215 DC 11/29 Sodium Succinate IV 11/29 0216 0556 Leflunomide 20 MG DAILY 11/29 0930 AC 11/29 PO 1143 Lorazepam 1 MG QPM PRN 11/29 0300 AC PO Non-Formulary 0 SEE ADMIN CRITERIA 11/29 0915 CAN Medication ANY Prednisone 5 MG DAILY 11/29 0914 AC 11/29 PO 1143 Sodium Chloride 1,000 ML ONCE ONE 11/29 0245 DC 11/29 IV 11/29 1244 0403 Sodium Chloride 1,000 ML BOLUS ONE 11/28 2215 DC 11/28 IV 11/28 2314 2309 Sodium Chloride 1,000 ML BOLUS ONE 11/28 2044 DC 11/28 IV 11/28 Last 24 Hrs of Lab/Boy Results Last 24 Hrs of Labs/Mics: Laboratory Tests 11/29/17 0610: Anion Gap 13, Estimated GFR > 60, BUN/Creatinine Ratio 21.1, Total Bilirubin 0.3 , Direct Bilirubin 0.3, AST 20, ALT 29, Alkaline Phosphatase 106, Troponin I 0.04, Total Protein 5.5 L, Albumin 2.7 L, CBC w Diff MAN DIFF ORDERED, RBC 3.19 L, MCV 89.4, MCH 30.1, MCHC 33.7, RDW 14.4, MPV 7.6, Gran % 87.7 H, Lymphocytes % 4.0 L, Monocytes % 7.9, Eosinophils % 0.3, Basophils % 0.1, Absolute Granulocytes 28.5 H, Segmented Neutrophils 74, Band Neutrophils 17 H, Absolute Lymphocytes 1.3, Lymphocytes 4 L, Monocytes 4, Absolute Monocytes 2.6 H, Absolute Eosinophils 0.1, Basophils 1, Absolute Basophils 0, Platelet Estimate VERIFIED BY SMEAR, Polychromasia 1+, Basophilic Stippling 1+ 11/28/172316: Lactic Acid Cancelled 11/28/172136: Urine Color YEL, Urine Clarity CLEAR, Urine pH 6.0, Ur Specific [place] 1.010, Urine Protein 30 H, Urine Ketones NEG, Urine Nitrite NEG, Urine Bilirubin NEG, Urine Urobilinogen 0.2, Ur Leukocyte Esterase TRACE H, Ur Microscopic SEDIMENT EXAMINED, Urine RBC RARE, Urine WBC 5-10 H, Ur Epithelial Cells FEW, Urine Bacteria FEW H, Hyaline Casts 3-5 H, Urine Mucus RARE, Urine Hemoglobin TRACE- INTACT, Urine Glucose NEG 11/28/172047: Anion Gap 12, Estimated GFR 54 L, BUN/Creatinine Ratio 24.0, Glucose 137 H, Lactic Acid 1.4, Calcium 9.8, Total Bilirubin 0.6, AST 37 H, ALT 28, Alkaline Phosphatase 127 H, Troponin I 0.03, Total Protein 6.8, Albumin 3.5, Globulin 3.3, Albumin/Globulin Ratio 1.1, Lipase 54, CBC w Diff MAN DIFF ORDERED, RBC 3.78 L, MCV 89.3, MCH 29.5, MCHC 33.0, RDW 14.2, MPV 7.3 L, Gran % 92.2 H, Lymphocytes % 2.2 L, Monocytes % 5.5, Eosinophils % 0.1, Basophils % 0, Absolute Granulocytes 25.0 H, Segmented Neutrophils 94 H, Band Neutrophils 1, Absolute Lymphocytes 0.6 L, Lymphocytes 2 L, Monocytes 3, Absolute Monocytes 1.5 H, Absolute Eosinophils 0, Absolute Basophils 0, Platelet Estimate VERIFIED BY SMEAR, Normocytic RBCs VERIFIED, Normochromic RBCs VERIFIED, Fld Total RBCs Counted 100 11/28/172030: Troponin I Cancelled, Lipase Cancelled Microbiology 11/29 0440 STOOL: Clostridium difficile Toxin A & B - COMP 11/28 2136 URINE ROUT: Legionella Antigen - COMP 11/28 2136 URINE ROUT: Streptococcus pneumoniae Antigen (M - COMP 11/28 2136 URINE ROUT: Urine Culture - RES GRAM NEGATIVE RODS 11/29 2119 BLOOD: Blood Culture - RES 11/28 2044 BLOOD: Blood Culture - RES Assessment/Plan Assessment: Ms. 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 difficile was negative We will consider ID if sx worsen Avoid NSAIDS due to hx of GI bleed DVT prophylaxis Pharm PPX + ALPS Heart Healthy Diet DNR/DNI Problem List: 1. Fever of unknown origin Pain Ratin Pain Location: Back Pain Goal: Pain 4 or less Pain Plan: Acetaminophen Tomorrow's Labs & Rationales: CBC, BEP
--- NOTE | 2017-11-29 11:14 | PN- Att Addend ---
Attending Addendum Attending Brief Note Patient seen and examined, says that overall she's feeling better. Requiring 2 lits of Oxygen. WBC increased today. She is still having diarrhea. Cdiff is snet and pending. Vital Signs Date Time Temp Pulse Resp B/P B/P Pulse O2 O2 Flow FiO2 Mean Ox Delivery Rate 11/29 1044 98.1 77 20 116/60 100 Nasal 2.0L Cannula 11/29 1000 98.1 77 20 116/60 11/29 0800 98.7 92 20 116/60 11/29 0800 96 Nasal 2.0L Cannula 11/29 0620 98.7 92 20 116/60 96 Nasal Cannula 11/29 0308 98.1 91 20 118/66 95 Nasal 2.0L Cannula 11/29 0300 Nasal 2.0L Cannula 11/29 0230 98.9 88 20 98/70 97 Room Air 11/29 0040 99.6 92 20 96/51 98 Room Air 11/28 2231 100.6 96 24 98/56 97 Nasal 2.5L Cannula 11/28 2217 96 Nasal 2.5L Cannula 11/28 2151 100.1 11/28 2147 100.1 96 24 90/50 96 Nasal 2.5L Cannula 11/28 2125 103.0 11/28 2024 103.0 112 24 153/76 95 Nasal 2.5L Cannula on exam; aox3, nad. cv; s1,s2, rrr resp; clear abd; soft, nt, bs+ ext; no edema Laboratory Tests 11/29 11/28 0610 2317 Chemistry Sodium (137 - 145 mmol/L) 137 Potassium (3.5 - 5.1 mmol/L) 3.7 Chloride (98 - 107 mmol/L) 99 Carbon Dioxide (22 - 30 mmol/L) 25 Anion Gap (5 - 16) 13 BUN (7 - 17 mg/dL) 19 H Creatinine (0.5 - 1.0 mg/dL) 0.9 Estimated GFR (>60 ml/min) > 60 BUN/Creatinine Ratio (7 - 25 %) 21.1 Lactic Acid Cancelled Total Bilirubin (0.2 - 1.3 mg/dL) 0.3 Direct Bilirubin (< 0.4 mg/dL) 0.3 AST (14 - 36 U/L) 20 ALT (9 - 52 U/L) 29 Alkaline Phosphatase (<127 U/L) 106 Troponin I (< 0.11 ng/ml) 0.04 Total Protein (6.3 - 8.2 g/dL) 5.5 L Albumin (3.5 - 5.0 g/dL) 2.7 L Hematology CBC w Diff MAN DIFF ORDERED WBC (4.8 - 10.8 /CUMM) 32.5 *H RBC (4.20 - 5.40 /CUMM) 3.19 L Hgb (12.0 - 16.0 G/DL) 9.6 L Hct (37 - 47 %) 28.5 L MCV (81.0 - 99.0 FL) 89.4 MCH (27.0 - 31.0 PG) 30.1 MCHC (33.0 - 37.0 G/DL) 33.7 RDW (11.5 - 14.5 %) 14.4 Plt Count (130 - 400 /CUMM) 466 H MPV (7.4 - 10.4 FL) 7.6 Gran % (42.2 - 75.2 %) 87.7 H Lymphocytes % (20.5 - 51.1 %) 4.0 L Monocytes % (1.7 - 9.3 %) 7.9 Eosinophils % (0 - 5 %) 0.3 Basophils % (0.0 - 2.0 %) 0.1 Absolute Granulocytes (1.4 - 6.5 /CUMM) 28.5 H Segmented Neutrophils (42.2 - 75.2 %) 74 Band Neutrophils (0.0 - 5.0 %) 17 H Absolute Lymphocytes (1.2 - 3.4 /CUMM) 1.3 Lymphocytes (20.5 - 51.1 %) 4 L Monocytes (1.7 - 9.3 %) 4 Absolute Monocytes (0.10 - 0.60 /CUMM) 2.6 H Absolute Eosinophils (0.0 - 0.7 /CUMM) 0.1 Basophils (0.0 - 2.0 %) 1 Absolute Basophils (0.0 - 0.2 /CUMM) 0 Platelet Estimate (ADEQUATE) VERIFIED BY SMEAR Polychromasia 1+ Basophilic Stippling 1+ 11/28 2137 Urines Urine Color (YEL,AMB,STR) YEL Urine Clarity (CLEAR) CLEAR Urine pH (5.0 - 8.0) 6.0 Ur Specific [place] (1.001 - 1.035) 1.010 Urine Protein (NEG,<30 MG/DL) 30 H Urine Ketones (NEG) NEG Urine Nitrite (NEG) NEG Urine Bilirubin (NEG) NEG Urine Urobilinogen (0.1 - 1.0 EU/dl) 0.2 Ur Leukocyte Esterase (NEG) TRACE H Ur Microscopic SEDIMENT EXAMINED Urine RBC (0 - 5 /HPF) RARE Urine WBC (0 - 2 /HPF) 5-10 H Ur Epithelial Cells (NONE,FEW) FEW Urine Bacteria (NEG/NONE) FEW H Hyaline Casts (0/LPF) 3-5 H Urine Mucus (FEW,NONE) RARE Urine Hemoglobin (NEG) TRACE-INTACT Urine Glucose (N MG/DL) NEG 11/28 Chemistry Sodium (137 - 145 mmol/L) 132 L Potassium (3.5 - 5.1 mmol/L) 3.9 Chloride (98 - 107 mmol/L) 93 L Carbon Dioxide (22 - 30 mmol/L) 27 Anion Gap (5 - 16) 12 BUN (7 - 17 mg/dL) 24 H Creatinine (0.5 - 1.0 mg/dL) 1.0 Estimated GFR (>60 ml/min) 54 L BUN/Creatinine Ratio (7 - 25 %) 24.0 Glucose (65 - 99 mg/dL) 137 H Lactic Acid (0.7 - 2.1 mmol/L) 1.4 Calcium (8.4 - 10.2 mg/dL) 9.8 Total Bilirubin (0.2 - 1.3 mg/dL) 0.6 AST (14 - 36 U/L) 37 H ALT (9 - 52 U/L) 28 Alkaline Phosphatase (<127 U/L) 127 H Troponin I (< 0.11 ng/ml) 0.03 Cancelled Total Protein (6.3 - 8.2 g/dL) 6.8 Albumin (3.5 - 5.0 g/dL) 3.5 Globulin (1.9 - 4.2 gm/dL) 3.3 Albumin/Globulin Ratio (1.1 - 2.2 %) 1.1 Lipase (23 - 300 U/L) 54 Cancelled Hematology CBC w Diff MAN DIFF ORDERED WBC (4.8 - 10.8 /CUMM) 27.1 H RBC (4.20 - 5.40 /CUMM) 3.78 L Hgb (12.0 - 16.0 G/DL) 11.1 L Hct (37 - 47 %) 33.7 L MCV (81.0 - 99.0 FL) 89.3 MCH (27.0 - 31.0 PG) 29.5 MCHC (33.0 - 37.0 G/DL) 33.0 RDW (11.5 - 14.5 %) 14.2 Plt Count (130 - 400 /CUMM) 548 H MPV (7.4 - 10.4 FL) 7.3 L Gran % (42.2 - 75.2 %) 92.2 H Lymphocytes % (20.5 - 51.1 %) 2.2 L Monocytes % (1.7 - 9.3 %) 5.5 Eosinophils % (0 - 5 %) 0.1 Basophils % (0.0 - 2.0 %) 0 Absolute Granulocytes (1.4 - 6.5 /CUMM) 25.0 H Segmented Neutrophils (42.2 - 75.2 %) 94 H Band Neutrophils (0.0 - 5.0 %) 1 Absolute Lymphocytes (1.2 - 3.4 /CUMM) 0.6 L Lymphocytes (20.5 - 51.1 %) 2 L Monocytes (1.7 - 9.3 %) 3 Absolute Monocytes (0.10 - 0.60 /CUMM) 1.5 H Absolute Eosinophils (0.0 - 0.7 /CUMM) 0 Absolute Basophils (0.0 - 0.2 /CUMM) 0 Platelet Estimate (ADEQUATE) VERIFIED BY SMEAR Normocytic RBCs VERIFIED Normochromic RBCs VERIFIED Other Body Source Fld Total RBCs Counted (%) 100 A/P: 76 y/o F with pmh sig for ILD, w/ 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 Patient currently getting treated with ceftriaxone and doxycycline. Noted rising WBC. Will monitor. C. difficile results are pending. Will consider infectious disease consult if no improvement in the WBC count. Patient's urine also grew gram-negative rods. Urinalysis is indeterminate. Patient on ceftriaxone anyways. She otherwise is asymptomatic from any urinary complaints. We will resume her home dose of prednisone as well as Arava. DVT px; Hep sq PT eval.
--- NOTE | 2017-11-29 11:47 | RADIOLOGY REPORT ---
EXAMINATION: XR CHEST CLINICAL INFORMATION: Shortness of breath COMPARISON: Chest CT from 03/07/2015 and 11/28/2017 TECHNIQUE: 2 views of the chest were obtained. FINDINGS: Chronic interstitial lung disease remains similar appearance compared the chest CT of 03/07/2015. It would be difficult to exclude superimposed acute pneumonitis against the background of chronic disease. However, no overt, acute abnormalities are seen. Cardiac silhouette is mildly enlarged. Mild atherosclerotic calcification of the aortic arch. No pneumothorax or pleural effusion. Bones appear diffusely osteopenic. No acute findings in the mildly degenerated thoracic spine. IMPRESSION: 1. Chronic interstitial lung disease has a similar appearance compared to 03/07/2015. 2. Mild cardiomegaly.
--- NOTE | 2017-11-29 21:13 | ULTRASOUND REPORT ---
EXAMINATION: US RETROPERITONEAL COMPLETE (RENAL) CLINICAL INFORMATION: Lesion in the left kidney seen on CT scan abdomen COMPARISON: CT abdomen 11/28/2017 TECHNIQUE: Real-time imaging of the kidneys and bladder. Color Doppler exam used. FINDINGS: RIGHT KIDNEY: 9.1 x 5.8 x 5.4 cm (SAG x AP x TRV). The kidney is normal in size, contour, and echogenicity. Renal cortical thickness is normal. No calculi or focal parenchymal lesions. No hydronephrosis. LEFT KIDNEY: 11.6 x 6.2 x 5.1 cm (SAG x AP x TRV). There are 2 anechoic cysts in the left kidney. These correlate to the lesion seen on the CT study of 11/28/2017. In the midpole there is a 1.4 x 1.4 x 1.4 cm cyst. At the lower pole there is a 1.1 x 1.2 x 1.2 cm cyst. The kidney is normal in size, contour, and echogenicity. Renal cortical thickness is normal. There are no calculi. There is no hydronephrosis. BLADDER: Well-distended and normal. Bilateral ureteral jets are demonstrated. Prevoid bladder volume is 129 mL. Post void was not assessed. IMPRESSION: 2 anechoic cysts in the left kidney. No suspicious renal lesions. No hydronephrosis or calculus.
[2017-11-30 06:20] VITALS: BP 124/78
--- NOTE | 2017-11-30 07:13 | PN- Housestaff ---
Flakito Ortiz 11/30/17 0713: Subjective Follow-up For: #UTI #Bacteremia #Hx of renal lesions #Hx of rib fractures, healing #Hyponatremia - resolved #elevated AST/AlkPhos Subjective: Patient reports backache. Denies hematuria, flank pain, fever, chills, nausea, vomiting or bowel symptoms Review of Systems Constitutional: Reports: see HPI. Objective Last 24 Hrs of Vital Signs/I&O Vital Signs Date Time Temp Pulse Resp B/P B/P Pulse O2 O2 Flow FiO2 Mean Ox Delivery Rate 11/30 0620 99.1 96 20 124/78 96 Nasal Cannula 11/30 0000 Nasal 2.0L Cannula 11/29 2229 98.2 70 20 132/80 97 Nasal Cannula 11/29 2000 98 Nasal 2.0L Cannula 11/29 1548 Nasal 2.0L Cannula 11/29 1420 Nasal 2.0L Cannula 11/29 1420 96 Nasal 2.0L Cannula 11/29 1354 97.7 86 20 100/70 96 Nasal 2.0L Cannula 11/29 1044 98.1 77 20 116/60 100 Nasal 2.0L Cannula 11/29 1000 98.1 77 20 116/60 Intake & Output 11/30 1600 11/30 0800 11/30 0000 Intake Total 460 830 Output Total 500 Balance 460 330 Intake, IV 130 Intake, Oral 460 700 Output, Urine 500 Patient 202 lb Weight Weight Bed scale Measurement Method Physical Exam General Appearance: Alert, Oriented X3, Cooperative, No Acute Distress Cardiovascular: Regular Rate, Normal S1, Normal S2 Lungs: Clear to Auscultation, Normal Air Movement Abdomen: Normal Bowel Sounds, Soft, No Tenderness Extremities: Trace edema Current Medications: Current Medications Sig/Apple Start time Last Medication Dose Route Stop Time Status Admin Acetaminophen 1,000 MG Q8P PRN 11/29 1800 AC 11/29 N/A 1 UNIT IV 11/30 1759 1939 Acetaminophen 650 MG Q8P PRN 11/29 0315 AC 11/29 PO 1537 Albuterol Sulfate 3 ML BID 11/29 2100 AC 11/29 INH 2000 Ceftriaxone Sodium 1,000 MG 11/29 2300 AC 11/29 IV 2227 Doxycycline Hyclate 100 MG 1100,0 11/29 1100 AC 11/29 Dextrose/Water 100 ML IV 222 Heparin Sodium 5,000 UNIT Q8 11/29 0600 AC 11/30 (Porcine) SC 0602 Leflunomide 20 MG DAILY 11/29 0930 AC 11/30 PO 0813 Lorazepam 1 MG ONE ONE 11/29 2200 DC 11/29 PO 11/29 2200 2227 Lorazepam 1 MG QPM PRN 11/29 2153 AC PO Lorazepam 1 MG QPM PRN 11/29 0300 DC 11/29 PO 2149 Non-Formulary 0 SEE ADMIN CRITERIA 11/29 0915 CAN Medication ANY Patient Medication 1 ED ONE ONE 11/29 1830 HI Teaching ED 11/29 1831 Prednisone 5 MG DAILY 11/29 0914 AC 11/30 PO 0813 Sodium Chloride 1,000 ML ONCE ONE 11/29 0245 DC 11/29 IV 11/29 1244 0403 Last 24 Hrs of Lab/Boy Results Last 24 Hrs of Labs/Mics: Laboratory Tests 11/30/17 0748: Sodium Pending, Potassium Pending, Chloride Pending, Carbon Dioxide Pending, Anion Gap Pending, BUN Pending, Creatinine Pending, BUN/Creatinine Ratio Pending , Iron Pending, TIBC Pending, Ferritin Pending, CBC w Diff Pending, WBC Pending, RBC Pending, Hgb Pending, Hct Pending, MCV Pending, MCH Pending, MCHC Pending, RDW Pending, Plt Count Pending, MPV Pending Assessment/Plan Assessment: Ms. 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), HTN, HLD, Rheumatoid Lung, RA, diastolic CHF hx of Ulcerative colitis, osteoporosis presented with a fall 1-2 hrs prior ER and generalized weakness/AMS #UTI #Bacteremia #Hx of renal lesions #Hx of rib fractures, healing #Hyponatremia - resolved #elevated AST/AlkPhos Plan: TRC/nebs PRN Continue Lorazepam Continue Prednisone and Leflunomide Urine cx grew E.Coli susceptible Ceftriaxone, resistant to Doxycycline We will discontinue Doxycycline Blood cultures grew GNR 1/2 sets Renal U/S ruled out abscess but showed bengin cysts Continue resistant to tetracyclines but susceptible to cephalosporins C. difficile was negative We will consider ID if sx worsen Avoid NSAIDS due to hx of GI bleed Pulm consult for SOB while on 2L during ambulation DVT prophylaxis Pharm PPX + ALPS Heart Healthy Diet DNR/DNI Problem List: 1. UTI (urinary tract infection) Pain Ratin Pain Location: NA Pain Goal: Remain pain free Pain Plan: NA Tomorrow's Labs & Rationales: CBC Ben ZAYAS,Carlene 11/30/17 1027: Attending MD Review Statement Attending Statement Attending MD Statement: examined this patient, discuss w/resident/PA/SHANK PAPERER, agreed w/resident/PA/SHANK PAPERER, discussed with family, reviewed EMR data (avail), discussed with nursing, discussed with case mgmt, reviewed images, amended to note Attending Assessment/Plan: Patient seen and examined, feels overall better. Breathing is somewhat improvd. Urine Culture grew Ecoli, blood cx1/2 positive for GNR. Vital Signs Date Time Temp Pulse Resp B/P B/P Pulse O2 O2 Flow FiO2 Mean Ox Delivery Rate 11/30 0800 Nasal 2.0L Cannula 11/30 0620 99.1 96 20 124/78 96 Nasal Cannula 11/30 0000 Nasal 2.0L Cannula 11/29 2229 98.2 70 20 132/80 97 Nasal Cannula 11/29 2000 98 Nasal 2.0L Cannula 11/29 1548 Nasal 2.0L Cannula 11/29 1420 Nasal 2.0L Cannula 11/29 1420 96 Nasal 2.0L Cannula 11/29 1354 97.7 86 20 100/70 96 Nasal 2.0L Cannula 11/29 1044 98.1 77 20 116/60 100 Nasal 2.0L Cannula on exam; aox3, nad. cv; s1,s2, rrr resp; clear abd; soft, nt, bs+ ext; no edema Laboratory Tests 11/30 0748 Chemistry Sodium (137 - 145 mmol/L) 140 Potassium (3.5 - 5.1 mmol/L) 3.7 Chloride (98 - 107 mmol/L) 103 Carbon Dioxide (22 - 30 mmol/L) 25 Anion Gap (5 - 16) 12 BUN (7 - 17 mg/dL) 13 Creatinine (0.5 - 1.0 mg/dL) 0.7 Estimated GFR (>60 ml/min) > 60 BUN/Creatinine Ratio (7 - 25 %) 18.6 Iron (37 - 170 ug/dL) 39 TIBC (265 - 497 ug/dL) 223 L Ferritin (11.1 - 264 ng/mL) 384.0 H Hematology CBC w Diff NO MAN DIFF REQ WBC (4.8 - 10.8 /CUMM) 24.0 H RBC (4.20 - 5.40 /CUMM) 3.39 L Hgb (12.0 - 16.0 G/DL) 10.1 L Hct (37 - 47 %) 30.3 L MCV (81.0 - 99.0 FL) 89.3 MCH (27.0 - 31.0 PG) 29.8 MCHC (33.0 - 37.0 G/DL) 33.4 RDW (11.5 - 14.5 %) 14.3 Plt Count (130 - 400 /CUMM) 515 H MPV (7.4 - 10.4 FL) 7.6 Gran % (42.2 - 75.2 %) 86.7 H Lymphocytes % (20.5 - 51.1 %) 4.7 L Monocytes % (1.7 - 9.3 %) 7.9 Eosinophils % (0 - 5 %) 0.5 Basophils % (0.0 - 2.0 %) 0.2 Absolute Granulocytes (1.4 - 6.5 /CUMM) 20.8 H Absolute Lymphocytes (1.2 - 3.4 /CUMM) 1.1 L Absolute Monocytes (0.10 - 0.60 /CUMM) 1.9 H Absolute Eosinophils (0.0 - 0.7 /CUMM) 0.1 Absolute Basophils (0.0 - 0.2 /CUMM) 0 A/P: 76 y/o F with pmh sig for ILD, 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 Patient also had diarrhea and Cdiff ruled out. Patient currently on Ceftrioxone. Will keep on CTX, DC Doxy. No evidence of Pna on imaging. Stool for C. difficile was negative. Leukocytosis is improving. We'll continue to monitor. Patient also growing gram-negative rods in one out of 2 blood cultures. We'll follow-up on the results. Continue TRC nebs. Patient at baseline oxygen 2 L. Continue this of the management and patient heparin subcutaneous for DVT prophylaxis. Encouraged ambulation. Discussed with patient's daughter at bedside.
[2017-11-30 09:13] LABS: ABSOLUTE BASOPHIL COUNT 0 /CUMM (0.0-0.2); ABSOLUTE EOSINOPHIL COUNT 0.1 /CUMM (0.0-0.7); ABSOLUTE GRANULOCYTE CT 20.8 /CUMM (1.4-6.5); ABSOLUTE LYMPH COUNT 1.1 /CUMM (1.2-3.4); ABSOLUTE MONOCYTE COUNT 1.9 /CUMM (0.10-0.60); BASOPHIL % 0.2 % (0.0-2.0); EOSINOPHIL % 0.5 % (0-5); HEMATOCRIT 30.3 % (37-47); MEAN CORPUSCULAR HGB 29.8 PG (27.0-31.0); MEAN CORPUSCULAR HGB CONC 33.4 G/DL (33.0-37.0); MEAN CORPUSCULAR VOLUME 89.3 FL (81.0-99.0); MEAN PLATELET VOLUME 7.6 FL (7.4-10.4); RBC DISTRIBUTION WIDTH 14.3 % (11.5-14.5); RED BLOOD CELL CT 3.39 /CUMM (4.20-5.40)
[2017-11-30 10:07] LABS: PLATELET COUNT 515 /CUMM (130-400)
[2017-11-30 10:08] LABS: GRANULOCYTE % 86.7 % (42.2-75.2)
[2017-11-30 14:16] VITALS: BP 118/80
[2017-11-30 22:05] VITALS: BP 112/80
[2017-12-01 06:29] VITALS: BP 136/82
--- NOTE | 2017-12-01 07:20 | PN- Housestaff ---
Flakito Ortiz 12/01/17 0720: Subjective Follow-up For: Chronic hypoxic respiratory failure UTI - E.Coli Bacteremia - GNR Hx of renal lesions Hx of rib fractures, healing Hyponatremia - resolved elevated AST/AlkPhos Subjective: Patient reports labored breathing. She also reports R side rib pain controlled with IV Acetaminophen. She denies diarrhea, CP, lightheadedness Review of Systems Constitutional: Reports: see HPI. Objective Last 24 Hrs of Vital Signs/I&O Vital Signs Date Time Temp Pulse Resp B/P B/P Pulse O2 O2 Flow FiO2 Mean Ox Delivery Rate 12/01 0629 98.4 82 22 136/82 96 Nasal 2.0L Cannula 12/01 0000 Nasal 2.0L Cannula 11/30 2205 98.0 76 20 112/80 97 Nasal 2.0L Cannula 11/30 2108 98 Nasal 2.0L Cannula 11/30 1600 Nasal 2.0L Cannula 11/30 1416 99.1 78 20 118/80 97 Nasal Cannula 11/30 1101 98 Nasal 2.0L Cannula Intake & Output 12/01 1600 12/01 0800 12/01 0000 Intake Total 480 800 Output Total Balance 480 800 Intake, Oral 480 800 Physical Exam General Appearance: Alert, Oriented X3, Cooperative, No Acute Distress Cardiovascular: Regular Rate, Normal S1, Normal S2 Lungs: Clear to Auscultation, Normal Air Movement Abdomen: Normal Bowel Sounds, Soft, No Tenderness Extremities: No Edema Current Medications: Current Medications Sig/Apple Start time Last Medication Dose Route Stop Time Status Admin Acetaminophen 650 MG .STK-MED ONE 11/30 1902 DC PO 11/30 1903 Acetaminophen 1,000 MG .STK-MED ONE 11/30 1851 DC IV 11/30 1852 Acetaminophen 1,000 MG Q8P PRN 11/29 1800 DC 11/30 N/A 1 UNIT IV 11/30 1759 1108 Acetaminophen 650 MG Q8P PRN 11/29 0315 AC 12/01 PO 0315 Albuterol Sulfate 3 ML BID 11/29 2100 AC 11/30 INH 2108 Ceftriaxone Sodium 1,000 MG 2300 11/29 2300 AC 11/30 IV 2142 Doxycycline Hyclate 100 MG 1100,2300 11/29 1100 DC 11/29 Dextrose/Water 100 ML IV 2227 Heparin Sodium 5,000 UNIT Q8 11/29 0600 AC 12/01 (Porcine) SC 0604 Leflunomide 20 MG DAILY 11/29 0930 AC 12/01 PO 0827 Lidocaine 1 PAT DAILY 12/01 0910 AC TOP Lorazepam 1 MG ONE ONE 11/30 2199 DC 11/30 PO 11/30 2200 220 Lorazepam 1 MG QPM PRN 11/30 215 AC PO Lorazepam 2 MG QPM PRN 11/30 215 DC PO Lorazepam 1 MG QPM PRN 11/29 215 DC 11/30 PO 2142 Pantoprazole Sodium 40 MG DAILY 11/30 1200 AC 12/01 IV 0826 Patient Medication 1 ED ONE ONE 11/30 1045 DC 11/30 Teaching ED 11/30 1046 1234 Prednisone 5 MG DAILY 11/29 0914 AC 12/01 PO 0826 Simethicone 80 MG ONCE ONE 11/30 1215 DC 11/30 PO 11/30 1216 1327 Last 24 Hrs of Lab/Boy Results Last 24 Hrs of Labs/Mics: Laboratory Tests 12/01/17629: CBC w Diff NO MAN DIFF REQ, RBC 3.27 L, MCV 89.1, MCH 29.8, MCHC 33.5, RDW 14.7 H, MPV 7.6, Gran % 75.4 H, Lymphocytes % 13.6 L, Monocytes % 7.6, Eosinophils % 2.9, Basophils % 0.5, Absolute Granulocytes 10.4 H, Absolute Lymphocytes 1.9, Absolute Monocytes 1.0 H, Absolute Eosinophils 0.4, Absolute Basophils 0.1 Assessment/Plan Assessment: Ms. 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), HTN, HLD, Rheumatoid Lung, RA, diastolic CHF hx of Ulcerative colitis, osteoporosis presented with a fall 1-2 hrs prior ER and generalized weakness/AMS #UTI - E.Coli #Bacteremia - GNR #Hx of renal lesions #Hx of rib fractures, healing #Hyponatremia - resolved #elevated AST/AlkPhos #Chronic hypoxic respiratory failure Plan: Start Lidoderm patch for MSK pain TRC/nebs PRN Continue Lorazepam Continue Prednisone and Leflunomide Urine cx grew E.Coli susceptible Ceftriaxone, resistant to Doxycycline We discontinued Doxycycline Blood cultures grew GNR 1/2 sets Renal U/S ruled out abscess but showed bengin cysts Continue resistant to tetracyclines but susceptible to cephalosporins C. difficile was negative We will consider ID if sx worsen Avoid NSAIDS due to hx of GI bleed Pulm recommends increasing O2 to 3L during ambulation DVT prophylaxis Pharm PPX + ALPS Heart Healthy Diet DNR/DNI Dispo: Discharge in a.m. Problem List: 1. UTI (urinary tract infection) Pain Ratin Pain Location: Back Pain Goal: Pain 4 or less Pain Plan: Tylenol Tomorrow's Labs & Rationales: CBC Carlene Contreras MD 12/01/17 1017: Attending MD Review Statement Attending Statement Attending MD Statement: examined this patient, discuss w/resident/PA/REFRACTORY FURNACE DESIGNER, agreed w/resident/PA/REFRACTORY FURNACE DESIGNER, discussed with family, reviewed EMR data (avail), discussed with nursing, discussed with case mgmt, reviewed images, amended to note Attending Assessment/Plan: Patient seen and examined, overall doing better. Still having some difficulty breathing. Appreciate pulmonology input this morning. She is also complaining of soreness in the right side of her ribs as well as back pain. This is likely exacerbated due to her fall prior to this admission. Vital Signs Date Time Temp Pulse Resp B/P B/P Pulse O2 O2 Flow FiO2 Mean Ox Delivery Rate 12/01 0629 98.4 82 22 136/82 96 Nasal 2.0L Cannula 12/01 0000 Nasal 2.0L Cannula 11/30 2205 98.0 76 20 112/80 97 Nasal 2.0L Cannula 11/30 2108 98 Nasal 2.0L Cannula 11/30 1600 Nasal 2.0L Cannula 11/30 1416 99.1 78 20 118/80 97 Nasal Cannula 11/30 1101 98 Nasal 2.0L Cannula on exam; aox3, nad cv; s1,s2, rrr resp; mild scattered crackles. abd; soft, nt, bs+ ext; no edema Laboratory Tests 12/01 06 Hematology CBC w Diff NO MAN DIFF REQ WBC (4.8 - 10.8 /CUMM) 13.8 H RBC (4.20 - 5.40 /CUMM) 3.27 L Hgb (12.0 - 16.0 G/DL) 9.8 L Hct (37 - 47 %) 29.1 L MCV (81.0 - 99.0 FL) 89.1 MCH (27.0 - 31.0 PG) 29.8 MCHC (33.0 - 37.0 G/DL) 33.5 RDW (11.5 - 14.5 %) 14.7 H Plt Count (130 - 400 /CUMM) 563 H MPV (7.4 - 10.4 FL) 7.6 Gran % (42.2 - 75.2 %) 75.4 H Lymphocytes % (20.5 - 51.1 %) 13.6 L Monocytes % (1.7 - 9.3 %) 7.6 Eosinophils % (0 - 5 %) 2.9 Basophils % (0.0 - 2.0 %) 0.5 Absolute Granulocytes (1.4 - 6.5 /CUMM) 10.4 H Absolute Lymphocytes (1.2 - 3.4 /CUMM) 1.9 Absolute Monocytes (0.10 - 0.60 /CUMM) 1.0 H Absolute Eosinophils (0.0 - 0.7 /CUMM) 0.4 Absolute Basophils (0.0 - 0.2 /CUMM) 0.1 A/P; 76 y/o F with pmh sig for ILD, 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 Patient also had diarrhea which is improved and Cdiff ruled out. Significant improvement in leukocytosis. White blood cell count down to 13,000. This was likely all secondary to the infectious etiology. We'll continue to monitor 1 more day and keep her on IV ceftriaxone. Follow-up on the blood cultures which is growing gram-negative rods. We'll try Lidoderm patch for the back pain. Continue the rest of the medications. Patient was encouraged to ambulate. Patient on heparin subcutaneous for DVT prophylaxis. If she continues to improve and leukocytosis continues to get better then she will likely discharge home tomorrow. Dr. Estrella recommends increasing her oxygen to 3 lits with activity. Discussed with the daughter at bedside.
--- NOTE | 2017-12-01 07:32 | Cons- Pulmonary ---
General Information and HPI Consulting Request Date of Consult: 12/01/17 Requested By: Meredith Reason for Consult: Interstitial lung disease History of Present Illness: Patient is 76-year-old woman with long-standing rheumatoid arthritis complicated by interstitial lung disease which has progressed since 2008. She is now oxygen dependent at 2 L. She suffered a fall 2 weeks ago with rib fractures. She is now admitted with diarrhea Escherichia coli bacteremia thought secondary to urologic sepsis. She denies change in her shortness of breath cough and denies sputum production or hemoptysis. Patient continues to require low-flow oxygen but is been noted to desaturate with ambulation Allergies/Medications Allergies: Coded Allergies: infliximab (From REMICADE) (Severe, LUNG PROBLEM, SOB 11/29/17) methotrexate (Severe, LUNG PROBLEM, SOB 11/29/17) hydroxychloroquine (From PLAQUENIL) (Intermediate, RASH 11/29/17) rituximab (From RITUXAN) (Intermediate, SOB 11/29/17) bacitracin (From NEOSPORIN PLUS PAINRELIEF(SANDRA)) (Mild, RASH 11/29/17) neomycin (From NEOSPORIN PLUS PAINRELIEF(SANDRA)) (Mild, RASH 11/29/17) polymyxin B (From NEOSPORIN PLUS PAINRELIEF(SANDRA)) (Mild, RASH 11/29/17) pramoxine (From NEOSPORIN PLUS PAINRELIEF(SANDRA)) (Mild, RASH 11/29/17) Sulfa (Sulfonamide Antibiotics) (UNKNOWN 11/29/17) azathioprine (UNKNOWN 11/29/17) buspirone (From BUSPAR) (UNKNOWN 11/29/17) clarithromycin (From BIAXIN) (UNKNOWN 11/29/17) latex (UNKNOWN 11/29/17) olmesartan (From BENICAR) (UNKNOWN 11/29/17) tramadol (UNKNOWN 11/29/17) Home Med List: Cholecalciferol (Vitamin D3) 1,000 UNIT TABLET 1 TAB PO DAILY VITAMIN SUPPORT (Reported) Fluticasone Propionate 50 MCG/ACTUATION SPRAY.SUSP ALLERGIES (Reported) Furosemide 40 MG TABLET 1 TAB PO BID WATER RETENTION (Reported) Leflunomide (Arava) 20 MG TABLET 1 TAB PO DAILY [place] (Reported) Lorazepam 1 MG TABLET 1-2 TAB PO QPM SLEEP (Reported) Losartan Potassium 50 MG TABLET 1 TAB PO DAILY BP (Reported) Meloxicam (Mobic) 7.5 MG TABLET 1 TAB PO DAILY PAIN (Reported) Metolazone 2.5 MG TABLET 1 TAB PO Q48 DIURETIC (Reported) Mometasone Furoate (Asmanex) 220 MCG (30 DOSES) AER.POW.BA ALLERGIES (Reported) Multivitamin (Daily Multiple Vitamin) 1 EACH TABLET 1 TAB PO DAILY VITAMIN SUPPORT (Reported) Oxycodone HCl/Acetaminophen (Percocet 5-325 MG Tablet) 5 MG-325 MG TABLET 0.5 TAB PO DAILY PRN PAIN Potassium Chloride 20 MEQ TAB.ER.PRT 1 TAB PO BID SUPPLEMENT (Reported) Prednisone 5 MG TABLET 1 TAB PO DAILY STEROID (Reported) Sennosides (Senna) 8.6 MG TABLET 1 TAB PO DAILY CONSTIPATION (Reported) Review of Systems Review of Systems Constitutional: Denies: chills, fever. Cardiovascular: Denies: chest pain. Respiratory: Reports: short of breath. Denies: cough, hemoptysis, sputum production. GI: Reports: diarrhea. Past History Travel History Traveled to [place] past 21 day No Medical History Blood Transfusion Hx: Yes Neurological: NONE EENT: NONE Cardiovascular: hypertension, hyperlipidemia Respiratory: RHEUMATOID LUNG Gastrointestinal: hiatal hernia Hepatic: NONE Renal: NONE Musculoskeletal: rheumatoid arthritis, osteoporosis Psychiatric: NONE Endocrine: NONE Blood Disorders: NONE Cancer(s): NONE CLERICAL OFFICE/Reproductive: NONE Surgical History Surgical History: unobtainable Psychosocial History Where Do You Live? Home Services at Home: None Smoking Status: Former Smoker ETOH Use: heavy use Illicit Drug Use: denies illicit drug use Functional Ability ADLs Independent: dressing, eating, toileting, bathing. Ambulation: independent IADLs Independent: shopping, housework, finances, food prep, telephone, transportation , medication admin. Exam & Diagnostic Data Last 24 Hrs of Vital Signs/I&O Vital Signs Date Time Temp Pulse Resp B/P B/P Pulse O2 O2 Flow FiO2 Mean Ox Delivery Rate 12/01 0629 98.4 82 22 136/82 96 Nasal 2.0L Cannula 12/01 0000 Nasal 2.0L Cannula 11/305 98.0 76 20 112/80 97 Nasal 2.0L Cannula 11/30 2108 98 Nasal 2.0L Cannula 11/30 1600 Nasal 2.0L Cannula 11/30 1416 99.1 78 20 118/80 97 Nasal Cannula 11/30 1101 98 Nasal 2.0L Cannula 11/30 0800 Nasal 2.0L Cannula Intake & Output 12/01 0800 12/01 0000 11/30 1600 Intake Total 800 460 Output Total Balance 800 460 Intake, IV 100 Intake, Oral 800 360 Oxygen saturation 2 L 96% HEENT exam shows no adenopathy exam for chest shows basilar crackles without wheezes cardiac exam shows normal S1 and S2 with soft systolic ejection murmur abdomen is soft nontender Last 48 Hrs of Labs/Boy: Laboratory Tests 11/30/17 0748: Anion Gap 12, Estimated GFR > 60, BUN/Creatinine Ratio 18.6, Iron 39, TIBC 223 L, Ferritin 384.0 H, CBC w Diff NO MAN DIFF REQ, RBC 3.39 L, MCV 89.3, MCH 29.8, MCHC 33.4, RDW 14.3, MPV 7.6, Gran % 86.7 H, Lymphocytes % 4.7 L, Monocytes % 7.9, Eosinophils % 0.5, Basophils % 0.2, Absolute Granulocytes 20.8 H, Absolute Lymphocytes 1.1 L, Absolute Monocytes 1.9 H, Absolute Eosinophils 0.1, Absolute Basophils 0 Assessment/Plan Impression/Plan: 76-year-old woman with chronic progressive interstitial lung disease thought secondary to underlying rheumatoid arthritis. She has chronic hypoxic respiratory failure. Chest radiograph fails to show any significant change compared to prior radiographs. In particular there is no evidence of pneumonia or atelectasis secondary to rib fractures. Recommendations: Patient will require increased oxygen flow rates with exertion to maintain saturations of 90% or greater. She has follow-up at the [place] [facility] in the next 1-2 weeks. If leukocytosis persists without other etiology would repeat CT scan of the chest. Consult Acknowledgment - Thank you for your consult request.
[2017-12-01 08:50] LABS: ABSOLUTE BASOPHIL COUNT 0.1 /CUMM (0.0-0.2); ABSOLUTE EOSINOPHIL COUNT 0.4 /CUMM (0.0-0.7); ABSOLUTE GRANULOCYTE CT 10.4 /CUMM (1.4-6.5); ABSOLUTE LYMPH COUNT 1.9 /CUMM (1.2-3.4); BASOPHIL % 0.5 % (0.0-2.0); EOSINOPHIL % 2.9 % (0-5); GRANULOCYTE % 75.4 % (42.2-75.2); HEMATOCRIT 29.1 % (37-47); MEAN CORPUSCULAR HGB 29.8 PG (27.0-31.0); MEAN CORPUSCULAR HGB CONC 33.5 G/DL (33.0-37.0); MEAN CORPUSCULAR VOLUME 89.1 FL (81.0-99.0); MEAN PLATELET VOLUME 7.6 FL (7.4-10.4); PLATELET COUNT 563 /CUMM (130-400); RBC DISTRIBUTION WIDTH 14.7 % (11.5-14.5); RED BLOOD CELL CT 3.27 /CUMM (4.20-5.40); WHITE BLOOD CELL COUNT 13.8 /CUMM (4.8-10.8)
--- NOTE | 2017-12-01 13:54 | Patient Discharge Instructions ---
Discharge Instructions General Discharge Information You were seen/treated for: Chronic hypoxic respiratory failure UTI Bacteremia Hx of renal lesions Hx of rib fractures, healing Hyponatremia elevated AST/AlkPhos You had these procedures: none Special Instructions: follow-up at the [place] [facility] in the next 1-2 weeks Follow up with your Electronic Assembler-Dr. Estrella within 1-2 weeks of discharge During ambulation use 3 L oxygen supplementation Follow up with your PCP within 1-2 weeks of discharge Diet Continue normal diet: Yes Activity Other activity limits: As tolerated Acute Coronary Syndrome Inclusion Criteria At DC or during hospital stay patient has or had the following: ACS DIAGNOSIS No Discharge Core Measures Meds if any: Prescribed or Continued at Discharge Meds if any: NOT Prescribed or Continued at Discharge Congestive Heart Failure Inclusion Criteria At DC or during hospital stay patient has or had the following: CHF DIAGNOSIS No Discharge Core Measures Meds if any: Prescribed or Continued at Discharge Meds if any: NOT Prescribed or Continued at Discharge Cerebrovascular accident Inclusion Criteria At DC or during hospital stay patient has or had the following: CVA/TIA Diagnosis No Discharge Core Measures Meds if any: Prescribed or Continued at Discharge Meds if any: NOT Prescribed or Continued at Discharge Venous thromboembolism Inclusion Criteria VTE Diagnosis No VTE Type NONE VTE Confirmed by (Test) NONE Discharge Core Measures - Per Current guidelines, there needs to be overlap - treatment for the first 5 days of Warfarin therapy. - If discharged on Warfarin prior to 5 days of - overlap therapy, the patient will need to be - assessed for post discharge needs including - *Post discharge parental anticoagulation - *Warfarin and/or parental anticoagulation education - *Follow up date to check INR post discharge At least 5 days overlap therapy as Inpatient No Meds if any: Prescribed or Continued at Discharge Note: Overlap Therapy is Warfarin and Anticoagulant Meds if any: NOT Prescribed or Continued at Discharge
[2017-12-01] MEDS ORDERED: LIDODERM1 EACH TOP (13:56)
[2017-12-01] MEDS ORDERED: CIPROFLOXACIN500 M2 PO (13:58)
[2017-12-01 14:30] VITALS: BP 130/60
[2017-12-01 22:43] VITALS: BP 157/79
[2017-12-02 06:03] VITALS: BP 147/75
--- NOTE | 2017-12-02 07:36 | PN- Housestaff ---
Flakito Ortiz 12/02/17 0735: Subjective Follow-up For: Chronic hypoxic respiratory failure UTI - E.Coli Bacteremia - E.Coli Hx of renal lesions Hx of rib fractures, healing Hyponatremia - resolved elevated AST/AlkPhos Subjective: Patient reports she feels much better this morning and her backache resolved with the IV Tylenol. She denies CP, SOB, nausea, vomiting, urinary or bowel symptoms Review of Systems Constitutional: Reports: see HPI. Objective Last 24 Hrs of Vital Signs/I&O Vital Signs Date Time Temp Pulse Resp B/P B/P Pulse O2 O2 Flow FiO2 Mean Ox Delivery Rate 12/02 0853 96 Nasal 2.0L Cannula 12/02 0800 Nasal 2.0L Cannula 12/02 0603 97.8 86 20 147/75 96 Nasal 2.0L Cannula 12/02 0000 Nasal 2.0L Cannula 12/01 2243 97.9 68 20 157/79 95 12/01 1930 98 Nasal 2.0L Cannula 12/01 1600 96 Nasal 2.0L Cannula 12/01 1430 98.6 80 18 130/60 96 Nasal 3.0L Cannula Intake & Output 12/02 1600 12/02 0800 12/02 0000 Intake Total 400 460 Output Total 350 Balance 400 110 Intake, IV 100 Intake, Oral 400 360 Output, Urine 350 Physical Exam General Appearance: Alert, Oriented X3, Cooperative, No Acute Distress Cardiovascular: Regular Rate, Normal S1, Normal S2 Lungs: SHELLEY mild wheezing Abdomen: Normal Bowel Sounds, Soft, No Tenderness Extremities: No Edema Current Medications: Current Medications Sig/Apple Start time Last Medication Dose Route Stop Time Status Admin Acetaminophen 1,000 MG Q8P PRN 12/01 1100 DCD 12/02 N/A 1 UNIT IV 0516 Albuterol Sulfate 3 ML BID 11/29 2100 DCD 12/02 INH 0823 Ceftriaxone Sodium 1,000 MG 2300 11/29 2300 DCD 12/01 IV 12/07 2301 2207 Heparin Sodium 5,000 UNIT Q8 11/29 06 DCD 12/02 (Porcine) SC 0516 Leflunomide 20 MG DAILY 11/29 0830 DCD 12/02 PO 0920 Lidocaine 1 PAT DAILY 12/01 09 DCD 12/02 TOP 0922 Lorazepam 2 MG QPM PRN 12/01 2026 DCD 12/01 PO 2035 Lorazepam 1 MG QPM PRN 11/305 DC PO Omeprazole 40 MG DAILY AC 12/02 0716 DCD PO Pantoprazole Sodium 40 MG DAILY 11/30 1200 DC 12/01 IV 0826 Prednisone 5 MG DAILY 11/29 0914 DCD 12/02 PO 0921 Last 24 Hrs of Lab/Boy Results Last 24 Hrs of Labs/Mics: Laboratory Tests 12/02/17 0625: CBC w Diff NO MAN DIFF REQ, RBC 3.24 L, MCV 88.5, MCH 29.8, MCHC 33.7, RDW 14.4 , MPV 7.6, Gran % 66.5, Lymphocytes % 17.7 L, Monocytes % 9.6 H, Eosinophils % 5.5 H, Basophils % 0.7, Absolute Granulocytes 6.5, Absolute Lymphocytes 1.7, Absolute Monocytes 0.9 H, Absolute Eosinophils 0.5, Absolute Basophils 0.1 Assessment/Plan Assessment: Ms. 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), HTN, HLD, Rheumatoid Lung, RA, diastolic CHF hx of Ulcerative colitis, osteoporosis presented with a fall 1-2 hrs prior ER and generalized weakness/AMS #UTI - E.Coli #Bacteremia - GNR #Hx of renal lesions #Hx of rib fractures, healing #Hyponatremia - resolved #elevated AST/AlkPhos #Chronic hypoxic respiratory failure Plan: Continue Lidoderm patch for MSK pain TRC/nebs PRN Continue Lorazepam Continue Prednisone and Leflunomide Urine cx grew E.Coli susceptible Ceftriaxone, resistant to Doxycycline We discontinued Doxycycline Blood cultures grew E.Coli Renal U/S ruled out abscess but showed benign cysts Continue resistant to tetracyclines but susceptible to cephalosporins C. difficile was negative Avoid NSAIDS due to hx of GI bleed Pulm recommends increasing O2 to 3L during ambulation We will discharge her home today with Augmentin for a 14-day course DVT prophylaxis Pharm PPX + ALPS Heart Healthy Diet DNR/DNI Problem List: 1. UTI (urinary tract infection) 2. Bacteremia Pain Ratin Pain Location: NA Pain Goal: Remain pain free Pain Plan: NA Tomorrow's Labs & Rationales: none Carlene Contreras MD 12/02/17 1109: Attending MD Review Statement Attending Statement Attending MD Statement: examined this patient, discuss w/resident/PA/MARKETING ANALYTICS ANALYST, agreed w/resident/PA/MARKETING ANALYTICS ANALYST, discussed with family, reviewed EMR data (avail), discussed with nursing, discussed with case mgmt, reviewed images, amended to note Attending Assessment/Plan: Patient seen and examined, overall doing much better. Breathing has improved. Leukocytosis has improved and white blood cell count is back to normal. Urine culture and blood culture grew Escherichia coli. Patient will be switched to oral Augmentin and discharged home today. We will go total of 14 day course of patient having upper tract infection. Patient should follow-up with his primary care doctor and production cloth cutter as an outpatient. She is medically stable for discharge home today on oral antibiotics.
--- NOTE | 2017-12-02 08:38 | PN- Pulmonary ---
Subjective HPI/Critical Care Issues: Patient denies shortness breath ambulated without difficulty Objective Current Medications: Current Medications Sig/Apple Start time Last Medication Dose Route Stop Time Status Admin Acetaminophen 1,000 MG Q8P PRN 12/01 1100 AC 12/02 N/A 1 UNIT IV 0516 Acetaminophen 650 MG Q8P PRN 11/29 0315 DC 12/01 PO 0315 Albuterol Sulfate 3 ML BID 11/29 2100 AC 12/02 INH 0823 Ceftriaxone Sodium 1,000 MG 2300 11/29 2300 AC 12/01 IV 12/07 2301 2207 Heparin Sodium 5,000 UNIT Q8 11/29 0600 AC 12/02 (Porcine) SC 0516 Leflunomide 20 MG DAILY 11/29 0930 AC 12/01 PO 0827 Lidocaine 1 PAT DAILY 12/01 0910 AC TOP Lorazepam 2 MG QPM PRN 12/01 202 AC 12/01 PO 2036 Lorazepam 1 MG QPM PRN 11/30 2155 DC PO Omeprazole 40 MG DAILY AC 12/02 0716 AC PO Pantoprazole Sodium 40 MG DAILY 11/30 1200 DC 12/01 IV 0826 Prednisone 5 MG DAILY 11/29 0914 AC 12/01 PO 0826 Vital Signs & I&O Last 24 Hrs of Vitals and I&O: Vital Signs Date Time Temp Pulse Resp B/P B/P Pulse O2 O2 Flow FiO2 Mean Ox Delivery Rate 12/02 0603 97.8 86 20 147/75 96 Nasal 2.0L Cannula 12/02 0000 Nasal 2.0L Cannula 12/01 2243 97.9 68 20 157/79 95 12/01 1930 98 Nasal 2.0L Cannula 12/01 1600 96 Nasal 2.0L Cannula 12/01 1430 98.6 80 18 130/60 96 Nasal 3.0L Cannula 12/01 1045 98 Nasal 2.0L Cannula Intake & Output 12/02 1600 12/02 0800 12/02 0000 Intake Total 400 460 Output Total 350 Balance 400 110 Intake, IV 100 Intake, Oral 400 360 Output, Urine 350 Ox and saturation 2 L 96% exam for chest shows chronic basilar crackles cardiac exam shows a regular S1 and S2 without murmurs Impression/Plan Impression/Plan Impression/Plan: 76-year-old woman with interstitial lung disease secondary to rheumatoid arthritis has chronic hypoxic respiratory failure. Respiratory status appears at baseline Recommendations: Patient will require increased oxygen flow rates with exertion to maintain saturations of 90% or greater. She has follow-up at the [place] [facility] in the next 1-2 weeks. Leukocytosis is improving. No further pulmonary suggestions
[2017-12-02] MEDS ORDERED: AUGMENTIN 875-1 EACH PO ×2 (09:13)
[2017-12-02] MEDS ORDERED: LIDODERM1 EACH TOP (09:14)
[2017-12-02 09:50] LABS: ABSOLUTE BASOPHIL COUNT 0.1 /CUMM (0.0-0.2); ABSOLUTE EOSINOPHIL COUNT 0.5 /CUMM (0.0-0.7); ABSOLUTE GRANULOCYTE CT 6.5 /CUMM (1.4-6.5); ABSOLUTE LYMPH COUNT 1.7 /CUMM (1.2-3.4); ABSOLUTE MONOCYTE COUNT 0.9 /CUMM (0.10-0.60); BASOPHIL % 0.7 % (0.0-2.0); EOSINOPHIL % 5.5 % (0-5); GRANULOCYTE % 66.5 % (42.2-75.2); HEMATOCRIT 28.7 % (37-47); MEAN CORPUSCULAR HGB 29.8 PG (27.0-31.0); MEAN CORPUSCULAR HGB CONC 33.7 G/DL (33.0-37.0); MEAN CORPUSCULAR VOLUME 88.5 FL (81.0-99.0); MEAN PLATELET VOLUME 7.6 FL (7.4-10.4); PLATELET COUNT 558 /CUMM (130-400); RBC DISTRIBUTION WIDTH 14.4 % (11.5-14.5); RED BLOOD CELL CT 3.24 /CUMM (4.20-5.40); WHITE BLOOD CELL COUNT 9.8 /CUMM (4.8-10.8)
--- NOTE | 2017-12-02 11:36 | Discharge Summary ---
Visit Information Visit Dates Admission Date: 11/29/17 Discharge Date: 12/02/17 Hospital Course Course Attending Physician: Carlene Contreras MD Primary Care Physician: Peter Rodriguez MD [facility] Course: Ms. 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), HTN, HLD, Rheumatoid Lung, RA, diastolic CHF, hx of Ulcerative colitis, osteoporosis presented with a fall 1-2 hrs prior ER and generalized weakness/AMS. She was admitted to the gen med floor for further evaluation and management. #UTI and Bacteremia On admission she had a Tmax of 103 and a white count of 27.1 that trended up to 32.5 before eventually normalizing. She was started on Ceftriaxone and Doxycline. Urine and blood cultures grew E.Coli susceptible to cephalosporins but resistant to tetracyclines. Her Doxycycline was subsequently discontinued. Renal U/S ruled out abscess but showed benign cysts. Her C. difficile was negative. She was discharge home with Augmentin for a 14-day antibiotic course. #Chronic hypoxic respiratory failure Pulmonology was consulted. CXR showed chronic changes. She was administered TRC/ nebs as needed. It was recommended for her to increase her oxygen to 3L during ambulation due to noted dyspnea when ambulating with physical therapy. #Mechanical fall Imaging did not reveal any acute pathology. She was given Lidoderm patch and IV Acetaminophen for MSK pain. We avoided NSAIDS due to her history of GI bleed #Chonic medical conditions She was continued on her home medications Allergies: Coded Allergies: infliximab (From REMICADE) (Severe, LUNG PROBLEM, SOB 11/29/17) methotrexate (Severe, LUNG PROBLEM, SOB 11/29/17) hydroxychloroquine (From PLAQUENIL) (Intermediate, RASH 11/29/17) rituximab (From RITUXAN) (Intermediate, SOB 11/29/17) bacitracin (From NEOSPORIN PLUS PAINRELIEF(SANDRA)) (Mild, RASH 11/29/17) neomycin (From NEOSPORIN PLUS PAINRELIEF(SANDRA)) (Mild, RASH 11/29/17) polymyxin B (From NEOSPORIN PLUS PAINRELIEF(SANDRA)) (Mild, RASH 11/29/17) pramoxine (From NEOSPORIN PLUS PAINRELIEF(SANDRA)) (Mild, RASH 11/29/17) Sulfa (Sulfonamide Antibiotics) (UNKNOWN 11/29/17) azathioprine (UNKNOWN 11/29/17) buspirone (From BUSPAR) (UNKNOWN 11/29/17) clarithromycin (From BIAXIN) (UNKNOWN 11/29/17) latex (UNKNOWN 11/29/17) olmesartan (From BENICAR) (UNKNOWN 11/29/17) tramadol (UNKNOWN 11/29/17) Pertinent Lab Results: 11/28/17-2016 EXAM TYPE: RAD - XRY-CHEST XRAY, TWO VIEWS IMPRESSION: Diffuse increased interstitial lung markings chronic probably underlying interstitial lung disease. Difficult to exclude underlying mild infiltrate. Clinical correlation recommended. 11/28/17 EXAM TYPE: CAT - CT ABD & PELVIS W IV CONTRAST; CT CHEST W IV CONTRAST IMPRESSION: 1. Healing fractures of the right anterior sixth through ninth ribs. 2. Chronic interstitial lung disease, similar to the recent prior study. No acute pulmonary finding. 3. Indeterminant left renal lesions. Further evaluation could initially be performed with renal ultrasound. 11/28/17 EXAM TYPE: CAT - CT HEAD WO IV CONTRAST IMPRESSION: No acute intracranial pathology. Mild volume loss with small vessel ischemic change. 11/29/17- EXAM TYPE: RAD - XRY-CHEST XRAY, TWO VIEWS IMPRESSION: 1. Chronic interstitial lung disease has a similar appearance compared to 03/07/2015. 2. Mild cardiomegaly. 11/29/17 EXAM TYPE: US - US-RENAL/KIDNEY IMPRESSION: 2 anechoic cysts in the left kidney. No suspicious renal lesions. No hydronephrosis or calculus. Disposition Summary Disposition Principal Diagnosis: Chronic hypoxic respiratory failure UTI Bacteremia Mechanical fall Additional Diagnosis: as above Discharge Disposition: home health services Discharge Instructions General Discharge Information Code Status: Do Not Resucitate/Intubat Patient's Diet: Heart Healthy Patient's Activity: As tolerated Follow-Up Instructions/Appts: follow-up at the [place] [facility] in the next 1-2 weeks Follow up with your Mud Cleaner Operator-Dr. Estrella within 1-2 weeks of discharge During ambulation use 3 L oxygen supplementation Follow up with your PCP within 1-2 weeks of discharge Medications at Discharge Discharge Medications: Continue taking these medications: Leflunomide (Arava) 20 MG TABLET 1 Tablet ORAL DAILY Qty = 90 Comments: Last Taken: 12/02/17 Time: 0900 AM Furosemide (Furosemide) 40 MG TABLET 1 Tablet ORAL TWICE DAILY Qty = 180 Comments: Last Taken: NOT GIVEN Time: Potassium Chloride (Potassium Chloride) 20 MEQ TAB.ER.PRT 1 Tablet ORAL TWICE DAILY Qty = 180 Comments: Last Taken: NOT GIVEN Time: Prednisone (Prednisone) 5 MG TABLET 1 Tablet ORAL DAILY Qty = 90 Comments: Last Taken: 12/02 Time: 0900 AM Lorazepam (Lorazepam) 1 MG TABLET 1-2 Tablet ORAL Every night Qty = 60 Comments: Last Taken: 12/01/17 Time: 8 PM Cholecalciferol (Vitamin D3) 1,000 UNIT TABLET 1 Tablet ORAL DAILY Comments: Last Taken: NOT GIVEN Time: Multivitamin (Daily Multiple Vitamin) 1 EACH TABLET 1 Tablet ORAL DAILY Comments: Last Taken: NOT GIVEN Time: Mometasone Furoate (Asmanex) 220 MCG (30 DOSES) AER.POW.BA Qty = 1 Comments: Last Taken: NOT GIVEN Time: Fluticasone Propionate (Fluticasone Propionate) 50 MCG/ACTUATION SPRAY.SUSP [place] Both sides of nose DAILY Qty = 16 Comments: Last Taken: NOT GIVEN Time: Sennosides (Senna) 8.6 MG TABLET 1 Tablet ORAL DAILY Comments: Last Taken: NOTGIVEN Time: Oxycodone HCl/Acetaminophen (Percocet 5-325 MG Tablet) 5 MG-325 MG TABLET 0.5 Tablet ORAL DAILY as needed for PAIN Qty = 5 Comments: Last Taken: NOT GIVEN Time: Losartan Potassium (Losartan Potassium) 50 MG TABLET 1 Tablet ORAL DAILY Comments: Last Taken: NOT GIVEN Time: Meloxicam (Mobic) 7.5 MG TABLET 1 Tablet ORAL DAILY Comments: Last Taken: NOT GIVEN Time: Metolazone (Metolazone) 2.5 MG TABLET 1 Tablet ORAL EVERY 48 HOURS (Every 2 days) Comments: Last Taken: NOT GIVEN Time: Start taking the following new medications: Amoxicillin/Potassium Clav (Augmentin 875-125 Tablet) 875 MG-125 MG TABLET 1 Tablet ORAL TWICE DAILY Qty = 18 No Refills Comments: Last Taken: NOT GIVEN Time: Lidocaine (Lidoderm) 5 % ADH..PATCH 1 Patch On the skin DAILY Qty = 30 No Refills Comments: Last Taken: 12/02/17 Time: 0900 AM 12 HOURS ON :::: 12 HOURS OFF Copies To: Delores ZAYAS,Max Ahumada Copies To: Delores ZAYAS,Max Ahumada
== END 2017-12-02 12:40 | disposition home health service (06) | DRG 690 ==
LOC: ERH 20:07 → ERHI 11-29 00:38 → 2NA 11-29 00:38 → ENRESERV 11-29 02:06 → 2NA 11-29 02:36 → ENPENDDIS 12-02 09:21 → ENTRNSPT 12-02 11:55 → EDTRNSPT 12-02 12:17 → EDTRNSPTSTS 12-02 12:17 → CMPTRNSPT 12-02 12:28 → 2NA 12-02 12:40
PROVIDERS: Internal Medicine Endocrinology, Diabetes & Metabolism; Physician Assistant; Student in an Organized Health Care Education/Training Program
DX: N39.0 Urinary tract infection, site not specified (principal); J84.9 Interstitial pulmonary disease, unspecified; I50.32 Chronic diastolic (congestive) heart failure; E87.1 Hypo-osmolality and hyponatremia; F05 Delirium due to known physiological condition; J96.11 Chronic respiratory failure with hypoxia; R78.81 Bacteremia; M05.10 Rheumatoid lung disease with rheumatoid arthritis of unspecified site; I11.0 Hypertensive heart disease with heart failure; E86.0 Dehydration; S22.41XD Multiple fractures of ribs, right side, subsequent encounter for fracture with routine healing; W01.0XXD Fall on same level from slipping, tripping and stumbling without subsequent striking against object, subsequent encounter; E78.5 Hyperlipidemia, unspecified; B96.20 Unspecified Escherichia coli [E. coli] as the cause of diseases classified elsewhere; M81.0 Age-related osteoporosis without current pathological fracture; Z87.19 Personal history of other diseases of the digestive system
CPT/HCPCS: 2NASP; 36415; 36592; 71046; 74177; 76775; 81001; 82436; 87040; 87086; 87449; 87450; 93005; 93010; 96365; 96375; 97116-GO; 97161-GP; 97530-GO; 99291; J0131; J0696; J1644; J1720; J7512